=== PATIENT | female | born 1930 | race Caucasian/White ===

== ENCOUNTER 2016-06-15 17:52 | Emergency (ER) | payer MEDICARE, OTHER ==
[2016-06-15] MEDS ORDERED: NS 0.9% 1000 ML* 1,000 ML IV ONE (18:59)
--- NOTE | 2016-06-15 20:06 | RAD ---
Indication: Fever, weakness. Comparison: December 21, [address] and December 21, 2015 chest radiograph. December 21, [address] Technique: Sitting AP and lateral chest views. Report: Elevated lung volumes and both mild prominence and rarefaction of the interstitial markings. No alveolar consolidation, focal pulmonary lesion, pleural effusion, pneumothorax. Upper normal heart size. Unremarkable central pulmonary vasculature. T8 vertebral compression fracture is chronic. Bone density appears decreased throughout. IMPRESSION: Stigmata of chronic obstructive pulmonary disease and emphysema. No acute cardiopulmonary process evident.
[2016-06-15 20:16] LABS: Hematocrit 47 % (35-47); Hemoglobin 14.8 g/dl (12.0-16.0); Mean Corpuscular HGB Conc 32 g/dl (31-36); Mean Corpuscular Hemoglobin 30 pg (27-31); Mean Corpuscular Volume 94 fL (80-97); Mean Platelet Volume 8 um3 (7.4-10.4); Red Blood Count 4.97 10^6/ul (4.0-5.4); Red Cell Distribution Width 15 % (10.5-15); White Blood Count 7.7 10^3/ul (3.5-10.8)
[2016-06-15 20:30] LABS: Albumin 4.1 g/dL (3.2-5.2); BUN/Creatinine Ratio 19.7 (8-20); C Reactive Protein 1.94 mg/L (< 5.00); Calcium 10.2 mg/dL (8.6-10.3); EGFR African American 100.4 (>60); EGFR Non-African American 78.1 (>60); Globulin 2.9 g/dL (2-4); Magnesium 1.8 mg/dL (1.9-2.7); Potassium 4.1 mmol/L (3.5-5.0); Total Bilirubin 0.4 mg/dL (0.2-1.0)
[2016-06-15 20:52] LABS: TSH (Thyroid Stimulating Horm) 1.01 mcIU/mL (0.34-5.60)
--- NOTE | 2016-06-15 21:34 | RAD ---
INDICATION: Weakness, multiple falls. Remote appendectomy. . COMPARISON: December 21, 2015 and September 08, 2013 CT exams. TECHNIQUE: Multidetector CT images were obtained from the lung bases to the ischial tuberosities. Evaluation of the viscera is limited without IV contrast. Multiplanar reformation. REPORT: Visualized lung bases are remarkable for emphysema. Unremarkable unenhanced liver and gallbladder. Moderately atrophic pancreas without suspicious finding. Unremarkable spleen. Large medially projecting diverticulum from the second segment of the duodenum without suggestion of inflammatory change. Unremarkable unopacified small bowel loops. Moderate diverticulosis primarily at the sigmoid colon without findings of diverticulitis. Small volume of free fluid in the pelvis. Negative for free air or significant hernias. Normal adrenal glands. Negative for hydronephrosis. There are bilateral renal cysts with large cyst at the RIGHT kidney with multiple demonstrating marginal calcification without significant change in size or degree of calcification compared with the 2014 CT consistent with benign etiology. The dominant cyst at the LEFT kidney is at the upper pole measuring up to 8.3 cm diameter. No renal collecting system stones or hydronephrosis. Unremarkable nondilated ureters. Unremarkable moderately distended urinary bladder. No significant change in calcified uterine fibroids compared with the 2014 exam. Unremarkable adnexal regions. Negative for lymphadenopathy. Normal diameter abdominal aorta and iliac arteries with significant calcific plaque. Negative for retroperitoneal or superficial soft tissue plane hematoma. Polyarticular degenerative arthropathy. Moderate RIGHT convex curve of the lumbar spine. No fractures or suspicious focal osseous lesions evident. IMPRESSION: 1. No acute abdominal pelvic pathologic process evident. 2. Moderate colonic diverticulosis without findings of diverticulitis. 3. No significant change in large LEFT renal cyst with mural calcification compared with the 2014 exam. 4. Negative for obstructive uropathy. 5. Negative for aortic aneurysm. 6. Negative for loculated hematoma or fracture.
[2016-06-15 21:44] LABS: Urine Bacteria Absent (Absent); Urine Bilirubin Negative (Negative); Urine Glucose Negative (Negative); Urine Nitrite Negative (Negative)
[2016-06-15 23:46] VITALS: BP 150/71
--- NOTE | 2016-06-16 10:55 | ED ---
Jules Salter Adam, scribed for Link Sultana MD on 06/15/16 at 1902 . Complex/Multi-Sys Presentation - HPI Summary HPI Summary: Pt is an 86 year old female presenting with increasing weakness. Her daughter states that the pt has grown very weak in the past few days and is no longer able to walk. She has fallen 2x in the last few days which is rare for her. She also presents with left foot swelling with redness. Last week her prednisone dosage was raised from 10 to 40. Today is her 4th day on 40 mg and she is not doing well. In addition to the weakness and LLE symptoms, her daughter states that she has been having generalized myalgia and she seems to have a low fever. Pt is a former smoker. PMHx includes lupus, HTN, DVT, GERD, osteoporosis, depression, and sciatic pain. - History Of Current Complaint Chief Complaint: EDWeakness Time Seen by Provider: 06/15/16 18:51 Hx Obtained From: Patient Onset/Duration: Gradual Onset, Lasting Days, Still Present Timing: Constant Severity Currently: Moderate Severity Initially: Mild Location: Pain At: - Generalized Associated Signs And Symptoms: Positive: Weakness, Edema - Left foot, with redness, Fever - Allergies/Home Medications Allergies/Adverse Reactions: Allergies Allergy/AdvReac Type Severity Reaction Status Date / Time Penicillins [PCN] Allergy Intermediate Rash Verified 12/21/15 11:22 PMH/Surg Hx/FS Hx/Imm Hx Endocrine/Hematology History: Reports: Hx Systemic Lupus Erythematosus, Other Endocrine/Hematological Disorders - LUPUS Denies: Hx Anticoagulant Therapy, Hx Blood Disorders, Hx Blood Transfusions, Hx Bone Marrow Disease, Hx Diabetes, Hx Sickle Cell Disease, Hx Thyroid Disease , Hx Anemia, Hx Unexplained Bleeding Cardiovascular History: Reports: Hx Deep Vein Thrombosis, Hx Hypertension, Other Cardiovascular Problems/Disorders - LUPUS Denies: Hx Congestive Heart Failure, Hx Pacemaker/ICD Respiratory History: Denies: Hx Asthma, Hx Chronic Obstructive Pulmonary Disease (COPD) GI History: Reports: Hx Gastroesophageal Reflux Disease, Hx Irritable Bowel, Other GI Disorders - GERD Denies: Hx Cirrhosis, Hx Crohn's Disease, Hx Diverticulosis, Hx Gall Bladder Disease, Hx Gastrointestinal Bleed, Hx Hiatal Hernia, Hx Jaundice, Hx Obstructive Bowel, Hx Ileostomy, Hx Pyloric Stenosis, Hx Ulcer History: Reports: Other Problems/Disorders - UTIs several x's a yr Denies: Hx Dialysis, Hx Renal Disease Musculoskeletal History: Reports: Hx Arthritis, Hx Back Problems, Hx Fibromyalgia, Other Musculoskeletal History - DJD-NECK, FIBROMYALGIA, RHEUMATOID ARTHRITIS Denies: Hx Rheumatoid Arthritis, Hx Bursitis, Hx Congenital Bone Abnormalities, Hx Gout, Hx Orthopedic Injury, Hx Osteoporosis, Hx Scoliosis, Hx Tendonitis Sensory History: Reports: Hx Cataracts, Hx Contacts or Glasses, Hx Vision Problem Denies: Hx Eye Injury, Hx Eye Prosthesis, Hx Glaucoma, Hx Macular Degeneration, Hx Deafness, Hx Hearing Aid, Hx Hearing Problem, Other Sensory Impairments Opthamlomology History: Reports: Hx Cataracts, Hx Contacts or Glasses, Hx Vision Problem Denies: Hx Eye Injury, Hx Eye Prosthesis, Hx Glaucoma, Hx Macular Degeneration, Other Sensory Impairments Neurological History: Denies: Hx Dementia, Hx Seizures Psychiatric History: Reports: Hx Anxiety - LUPUS RELATED, Hx Eating Disorder, Hx Depression - LUPUS RELATED Denies: Hx Attention Deficit Hyperactivity Disorder, Hx Panic Disorder, Hx Post Traumatic Stress Disorder, Hx Inpatient Treatment, Hx Schizophrenia, Hx Bipolar Disorder, Hx Suicide Attempt, Hx Substance Abuse, Other Psychiatric Issues/Disorders - Cancer History Hx Chemotherapy: No - Surgical History Surgery Procedure, Year, and Place: . APPENDECTOMY 40 YEARS AGO (?) Hx Anesthesia Reactions: No Infectious Disease History: No Infectious Disease History: Denies: Hx Clostridium Difficile, Hx Hepatitis, Hx Human Immunodeficiency Virus (HIV), Hx of Known/Suspected MRSA, Hx Shingles, Hx Tuberculosis, Traveled Outside the [place] in Last 30 Days - Family History Known Family History: Positive: None - Pt denies any FMHx - Social History Occupation: Retired Lives: Alone Alcohol Use: None Hx Substance Use: No Substance Use Type: Reports: None Hx Tobacco Use: Yes Smoking Status (MU): Former Smoker Type: Cigarettes Amount Used/How Often: 40 years Have You Smoked in the Last Year: No Review of Systems Positive: Fever Negative: Diarrhea Positive: Myalgia - Generalized, Edema - Left foot Positive: Other - Redness, left foot Positive: Weakness All Other Systems Reviewed And Are Negative: Yes Physical Exam - Summary Physical Exam Summary: VITAL SIGNS: Reviewed. GENERAL: Patient is a this female who is lying comfortable in the stretcher. Patient is not in any acute respiratory distress. HEAD AND FACE: No signs of trauma. No ecchymosis, hematomas or skull depressions. No sinus tenderness. EYES: PERRLA, EOMI x 2, No injected conjunctiva, no nystagmus. No photophobia. EARS: Hearing grossly intact. Ear canals and tympanic membranes are within normal limits. MOUTH: Oropharynx within normal limits. NECK: Supple, trachea is midline, no adenopathy, no JVD, no carotid bruit, no c- spine tenderness, neck with full ROM. No meningeal signs, no Kernig's or brudzinskis signs. CHEST: Symmetric, no tenderness at palpation LUNGS: Clear to auscultation bilaterally. No wheezing or crackles. CVS: Regular rate and rhythm, S1 and S2 present, no murmurs or gallops appreciated. ABDOMEN: Soft, non-tender. No signs of distention. No rebound no guarding, and no masses palpated. Bowel sounds are normal. EXTREMITIES: FROM in all major joints, no edema, no cyanosis or clubbing. NEURO: Alert and oriented x 3. No acute neurological deficits. Speech is normal and follows commands. SKIN: Dry and warm Triage Information Reviewed: Yes Vital Signs On Initial Exam: Initial Vitals Temp Pulse Resp BP Pulse Ox 101 F 72 20 129/81 98 06/15/16 18:04 06/15/16 18:04 06/15/16 18:04 06/15/16 18:04 06/15/16 18:04 Vital Signs Reviewed: Yes - Boni Coma Scale Coma Scale Total: 15 Diagnostics - Vital Signs Vital Signs Temp Pulse Resp BP Pulse Ox 06/15/16 18:15 70 97 06/15/16 18:04 101 F 72 20 129/81 98 - Laboratory Lab Results: Lab Results 06/15/16 06/15/16 06/15/16 Range/Units 20:05 20:05 20:05 WBC 7.7 (3.5-10.8) 10^3/ul RBC 4.97 (4.0-5.4) 10^6/ul Hgb 14.8 (12.0-16.0) g/dl Hct 47 (35-47) % MCV 94 (80-97) fL MCH 30 (27-31) pg MCHC 32 (31-36) g/dl RDW 15 (10.5-15) % Plt Count 306 (150-450) 10^3/ul MPV 8 (7.4-10.4) um3 Neut % (Auto) 88.0 H (38-83) % Lymph % (Auto) 10.4 L (25-47) % Nobles % (Auto) 1.3 (1-9) % Eos % (Auto) 0 (0-6) % Baso % (Auto) 0.3 (0-2) % Absolute Neuts (auto) 6.8 (1.5-7.7) 10^3/ul Absolute Lymphs (auto) 0.8 L (1.0-4.8) 10^3/ul Absolute Monos (auto) 0.1 (0-0.8) 10^3/ul Absolute Eos (auto) 0 (0-0.6) 10^3/ul Absolute Basos (auto) 0 (0-0.2) 10^3/ul Absolute Nucleated RBC 0.01 10^3/ul Nucleated RBC % 0.1 APTT 31.1 (26.0-36.3) seconds Sodium 137 (133-145) mmol/L Potassium 4.1 (3.5-5.0) mmol/L Chloride 101 (101-111) mmol/L Carbon Dioxide 27 (22-32) mmol/L Anion Gap 9 (2-11) mmol/L BUN 14 (6-24) mg/dL Creatinine 0.71 (0.51-0.95) mg/dL Est GFR ( Amer) 100.4 (>60) Est GFR (Non-Af Amer) 78.1 (>60) BUN/Creatinine Ratio 19.7 (8-20) Glucose 122 H (70-100) mg/dL Lactic Acid (0.5-2.0) mmol/L Calcium 10.2 (8.6-10.3) mg/dL Magnesium 1.8 L (1.9-2.7) mg/dL Total Bilirubin 0.40 (0.2-1.0) mg/dL AST 13 (13-39) U/L ALT 6 L (7-52) U/L Alkaline Phosphatase 61 (34-104) U/L Troponin I 0.00 (<0.04) ng/mL C-Reactive Protein 1.94 (< 5.00) mg/L B-Natriuretic Peptide ( - 100) pg/mL Total Protein 7.0 (6.4-8.9) g/dL Albumin 4.1 (3.2-5.2) g/dL Globulin 2.9 (2-4) g/dL Albumin/Globulin Ratio 1.4 (1-3) TSH 1.01 (0.34-5.60) mcIU/mL 06/15/16 06/15/16 Range/Units 20:05 20:05 WBC (3.5-10.8) 10^3/ul RBC (4.0-5.4) 10^6/ul Hgb (12.0-16.0) g/dl Hct (35-47) % MCV (80-97) fL MCH (27-31) pg MCHC (31-36) g/dl RDW (10.5-15) % Plt Count (150-450) 10^3/ul MPV (7.4-10.4) um3 Neut % (Auto) (38-83) % Lymph % (Auto) (25-47) % Nobles % (Auto) (1-9) % Eos % (Auto) (0-6) % Baso % (Auto) (0-2) % Absolute Neuts (auto) (1.5-7.7) 10^3/ul Absolute Lymphs (auto) (1.0-4.8) 10^3/ul Absolute Monos (auto) (0-0.8) 10^3/ul Absolute Eos (auto) (0-0.6) 10^3/ul Absolute Basos (auto) (0-0.2) 10^3/ul Absolute Nucleated RBC 10^3/ul Nucleated RBC % APTT (26.0-36.3) seconds Sodium (133-145) mmol/L Potassium (3.5-5.0) mmol/L Chloride (101-111) mmol/L Carbon Dioxide (22-32) mmol/L Anion Gap (2-11) mmol/L BUN (6-24) mg/dL Creatinine (0.51-0.95) mg/dL Est GFR ( Amer) (>60) Est GFR (Non-Af Amer) (>60) BUN/Creatinine Ratio (8-20) Glucose (70-100) mg/dL Lactic Acid 1.1 (0.5-2.0) mmol/L Calcium (8.6-10.3) mg/dL Magnesium (1.9-2.7) mg/dL Total Bilirubin (0.2-1.0) mg/dL AST (13-39) U/L ALT (7-52) U/L Alkaline Phosphatase (34-104) U/L Troponin I (<0.04) ng/mL C-Reactive Protein (< 5.00) mg/L B-Natriuretic Peptide 217 H ( - 100) pg/mL Total Protein (6.4-8.9) g/dL Albumin (3.2-5.2) g/dL Globulin (2-4) g/dL Albumin/Globulin Ratio (1-3) TSH (0.34-5.60) mcIU/mL Result Diagrams: 06/15/16 20:05 06/15/16 20:05 Lab Statement: Any lab studies that have been ordered have been reviewed, and results considered in the medical decision making process. - Radiology CXR Radiology Interpretation Completed By: Radiologist - IMPRESSION: Stigmata of chronic obstructive pulmonary disease and emphysema. No acute cardiopulmonary process evident. - CT A/P CT Interpretation Completed By: Radiologist - IMPRESSION: 1. No acute abdominal pelvic pathologic process evident. 2. Moderate colonic diverticulosis without findings of diverticulitis. 3. No significant change in large LEFT renal cyst with mural calcification compared with the 2014 exam. 4. Negative for obstructive uropathy. 5. Negative for aortic aneurysm. 6. Negative for loculated hematoma or fracture. - Additional Comments Diagnostic Additional Comments: Troponin I - 0.00 Complex Multi-Symp Course/Dx Assessment/Plan: Pt is an 86 year old female presenting with increasing weakness. Her daughter states that the pt has grown very weak in the past few days and is no longer able to walk. She has fallen 2x in the last few days which is rare for her. She also presents with left foot swelling with redness. Last week her prednisone dosage was raised from 10 to 40. Today is her 4th day on 40 mg and she is not doing well. In addition to the weakness and LLE symptoms , her daughter states that she has been having generalized myalgia and she seems to have a low fever. Pt is a former smoker. PMHx includes lupus, HTN, DVT , GERD, osteoporosis, depression, and sciatic pain. Fall precautions were ordered. Blood work shows hyperglycemia of 122, Mg+ 1.8 BNP 217. Initially she was given Magnesium. Abdominal and pelvic CT was done since she report occasional abdominal pain. Impression as above. I did not perform an Head CT since she is neurological intact. She is ambulating in the ED with good steady walk. CXR: Stigmata for COPD, with no acute disease. In the Ed course she was ambulated with good steady walk. Daughter reports that she will staying with her at home and she will be moving with her in the next couple days. She will be discharged home with f/u of PMD in the next 1-2 days. - Diagnoses Differential Diagnoses/HQI/PQRI: Other - Mechanical falls, UTI, weakness Provider Diagnoses: Weakness, Accidental fall Discharge - Discharge Plan Condition: Stable Disposition: HOME Patient Education Materials: Weakness (ED), Fall Prevention for Older Adults ( ED) Referrals: Alex Mack MD [Primary Care Provider] - Additional Instructions: Follow up with Dr. Mack. The documentation as recorded by the Jules hoffman Adam accurately reflects the service I personally performed and the decisions made by me, Link Sultana MD.
== END 2016-06-15 23:46 | disposition home or self-care (01) ==
LOC: ED 17:52
DX: R53.1 Weakness (principal); R60.9 Edema, unspecified; R50.9 Fever, unspecified; Z87.891 Personal history of nicotine dependence
CPT/HCPCS: 36415; 71020; 74176; 80053; 81003; 81015; 83605; 83735; 83880; 84443; 84484; 85025; 85730; 86140; 87040; 99283

== ENCOUNTER → 2016-11-07 15:31 | Emergency (ER) | payer MEDICARE, OTHER ==
[2016-11-07 17:12] VITALS: BP 0/0
== END | disposition left against medical advice (07) ==
LOC: ED 15:31
DX: Z53.21 Procedure and treatment not carried out due to patient leaving prior to being seen by health care provider (principal)
CPT/HCPCS: 99281

== ENCOUNTER 2017-01-11 13:20 | Inpatient (IN) | payer MEDICARE, OTHER ==
[2017-01-11 14:37] LABS: Add Diff/Slide Review? Slide Review Added; Comments Flag Yes; Hematocrit 44 % (35-47); Hemoglobin 14.2 g/dl (12.0-16.0); Mean Corpuscular HGB Conc 32 g/dl (31-36); Mean Corpuscular Hemoglobin 30 pg (27-31); Mean Corpuscular Volume 93 fL (80-97); Mean Platelet Volume 7 um3 (7.4-10.4); Red Blood Count 4.72 10^6/ul (4.0-5.4); Red Cell Distribution Width 15 % (10.5-15); White Blood Count 11.1 10^3/ul (3.5-10.8)
[2017-01-11 14:43] LABS: Urine Bacteria 2+ (Absent); Urine Bilirubin Negative (Negative); Urine Glucose Negative (Negative); Urine Nitrite Negative (Negative)
[2017-01-11 14:50] LABS: Albumin 3.5 g/dL (3.2-5.2); BUN/Creatinine Ratio 22.4 (8-20); C Reactive Protein 7.04 mg/L (< 5.00); Calcium 8.8 mg/dL (8.6-10.3); EGFR African American 92.8 (>60); EGFR Non-African American 72.2 (>60); Globulin 2.4 g/dL (2-4); Potassium 4.4 mmol/L (3.5-5.0); Total Bilirubin 0.4 mg/dL (0.2-1.0); Total Protein 5.9 g/dL (6.4-8.9)
--- NOTE | 2017-01-11 14:58 | RAD ---
HISTORY: Chest pain COMPARISONS: June 15, 2016 VIEWS: 4: Frontal dual-energy and lateral views of the chest. FINDINGS: CARDIOMEDIASTINAL SILHOUETTE: The cardiomediastinal silhouette is normal. MARINA: The marina are normal. PLEURA: The costophrenic angles are sharp. No pleural abnormalities are noted. LUNG PARENCHYMA: There is hyperinflation with flattening of the diaphragm and expansion of the AP diameter of the chest. ABDOMEN: The upper abdomen is clear. There is no subphrenic gas. BONES AND SOFT TISSUES: Degenerative changes are noted along the spine. OTHER: None. IMPRESSION: HYPERINFLATION, CONSISTENT WITH COPD. NO ACTIVE CARDIOPULMONARY DISEASE.
[2017-01-11 15:02] LABS: Immature Granulocytes 1 % (0-9); Myelocytes % 1 % (0-1); Neutrophil % 94 % (38-83); RBC Morphology Normal (Normal)
[2017-01-11 15:09] LABS: TSH (Thyroid Stimulating Horm) 0.93 mcIU/mL (0.34-5.60)
[2017-01-11] MEDS ORDERED: Iohexol 300* (CONTRAST) 10 ML SDV IV ONE (15:16)
--- NOTE | 2017-01-11 16:16 | RAD ---
INDICATION: Left upper quadrant pain COMPARISON: CT June 15, 2016; CT December 21, 2015 TECHNIQUE: Axial source images were obtained from the hemidiaphragms to the symphysis pubis following administration of oral and intravenous contrast. 71 mL Omnipaque 300 was utilized. Coronal and sagittal reconstructed images were acquired. Lung bases: The lung bases are clear. There is mild pleural thickening in the dependent portions of the lung bases. There is a small pericardial effusion at the base of the heart Liver: The liver is normal in size. There are no masses. There is no ductal dilatation. Gallbladder: There are no calcified gallstones. There is no evidence of wall thickening or pericholecystic fluid. There is mild enhancement of the gallbladder wall. Spleen: The spleen is normal in size. There are no new masses. There is a stable low-density splenic lesion which may represent a cyst. This is unchanged from the 2016 study Pancreas: There is no focal pancreatic mass or ductal dilatation. There is mild pancreatic atrophy Adrenal glands: There is no evidence of adrenal mass. Kidneys: There are numerous renal cysts with dominant left renal cysts measuring up to 8 cm. Several cysts contain peripheral, curvilinear calcifications. The appearance is unchanged. Smaller cysts are present on the right. There is mild renal parenchymal thinning bilaterally.. There is prompt perfusion and excretion Adenopathy: There is no evidence of adenopathy by size criteria. Fluid collections: There are no free or localized fluid collections. Vessels:There are atherosclerotic changes involving the aorta and iliac vessels. There is no focal aneurysm. The IVC appears normal. GI tract: The upper GI tract is unremarkable. There is a curvilinear artifact in the cecum which is likely an ingested foreign body. This is likely an incidental finding. There are scattered diverticula of the sigmoid and descending colon. There is no CT evidence of diverticulitis. There are no findings of obstruction or perforation. Pelvic organs: There are numerous calcified uterine leiomyomas, unchanged. There is no adnexal mass Bladder: There are no bladder masses. Abdominal and pelvic soft tissues: The extraperitoneal abdominal and pelvic soft tissues appear normal.. Osseous structures: There are no acute osseous changes. There are spondylitic changes of the lumbar spine. Other: None IMPRESSION: 1. Small pericardial effusion at the base the heart. 2. Mild nonspecific enhancement gallbladder wall. 3. Stable low-density splenic lesion. 4. Numerous large left renal cysts and small right renal cyst with peripheral calcifications. There is stability. 5. Suspect ingested foreign body residing within the cecum. This is likely an incidental finding. 6. Scattered diverticula of the sigmoid and descending colon. 7. Uterine leiomyomas
[2017-01-11] MEDS ORDERED: HYDROmorphone INJ* 1 MG/ML CARPUJECT SYRINGE IV ONE (16:20)
[2017-01-11] MEDS ORDERED: Ondansetron INJ* 2 MG/ML VIAL IV ONE (16:20)
[2017-01-11] MEDS ORDERED: Levofloxacin 750 MG IVPREMIX(* 750 MG/150 ML BAG IVPB ONE (17:18)
[2017-01-11] MEDS ORDERED: NS 0.9% 1000 ML* 1,000 ML IV ONE (17:18)
[2017-01-11] MEDS ORDERED: Prochlorperazine TAB* 10 MG PO PRN (19:30)
[2017-01-11] MEDS ORDERED: HYDROcodone/ACETAMIN 5-325 MG* 1 TAB PO PRN (19:30)
[2017-01-11] MEDS: Carvedilol TAB* 3.125 MG PO SCH (21:38)
[2017-01-11] MEDS: cefTRIAXone VIAL(*) 1,000 MG in NS 0.9% 50 ML* 50 ML IVPB SCH (21:38)
[2017-01-11] MEDS: Gabapentin CAP(*) 300 MG PO SCH (21:39)
[2017-01-11] MEDS: clonazePAM TAB(*) 0.5 MG PO SCH (21:39)
[2017-01-11] MEDS: busPIRone TAB* 5 MG PO SCH (21:39)
[2017-01-11] MEDS: Mycophenolate Mofetil TAB(*) 500 MG PO SCH (21:41)
[2017-01-11] MEDS: NS 0.9% 1000 ML* 1,000 ML IV SCH (21:47)
--- NOTE | 2017-01-11 23:28 | HP ---
CC: Dr. Mack* HISTORY AND PHYSICAL: DATE OF ADMISSION: 01/11/17 PRIMARY CARE PROVIDER: Dr. Mack. CHIEF COMPLAINT: Abdominal pain. HISTORY OF PRESENT ILLNESS: Rafaela Spring is an 86-year-old female with a history of lupus, anxiety, tardive dyskinesia, irritable bowel syndrome, who presents to the hospital complaining of 3 months of abdominal pain. She apparently had a CT of the abdomen to be obtained as an outpatient, but she came into the hospital for evaluation. Three days ago, she developed diarrhea. She stated that she is incontinent of her bowel movements and she is unsure how often she goes, but her daughter stated that her bowel movements are now "pure liquid." She had been having diarrhea for 3 days. The abdominal pain is chronic, intermittent, and localized in the left mid abdomen. The diarrhea got her weaker and they came into the ED for evaluation. Here, her CT of the abdomen is basically unremarkable apart from possibility of bezoar in the cecum. She also has possible UTI. She is going to be admitted for an overnight observation. PAST MEDICAL HISTORY: 1. SLE, on CellCept and prednisone. 2. 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 3. History of anxiety and depression. 4. Chronic pain due to T8 compression fracture and scoliosis. 5. History of small bowel obstruction, status post exploratory laparotomy in 2014 with removal of bezoar by Dr. Carmona as well as abscess of the appendix at the same time. 6. History of osteoarthritis. 7. Gastroesophageal reflux disease. 8. Irritable bowel syndrome. 9. Cataract surgery bilaterally. 10. Hypertension. OUTPATIENT MEDICATIONS: Include: 1. Coumadin 5 mg daily. 2. Baclofen 10 mg t.i.d. p.r.n. 3. Fosamax 70 mg weekly. 4. BuSpar 5 mg b.i.d. 5. Calcium carbonate 1 tablet daily. 6. Gabapentin 300 mg at bedtime. 7. Coreg 3.125 mg b.i.d. 8. Compazine 10 mg daily p.r.n. 9. Paroxetine 30 mg daily. 10. CellCept 500 mg b.i.d. 11. Conway 5/325 one tablet up to 4 times a day p.r.n. 12. Prednisone 10 mg daily. 13. Clonazepam 0.5 mg at bedtime. ALLERGIES: PENICILLIN. FAMILY HISTORY: Positive for diabetes and heart disease. SOCIAL HISTORY: The patient denies any current smoking. She quit smoking 40 years ago. There is a history of [id number] smoking. She denies any alcohol or drug use. She lives at her own trailer. Her daughter, Arcelia, is her healthcare proxy. Her other daughter is an emergency room physician, who lives in [place]. She ambulates with a roller walker. REVIEW OF SYSTEMS: Please see history of present illness. In addition to the above mentioned, all other 14 systems were reviewed and were otherwise negative. PHYSICAL EXAMINATION GENERAL APPEARANCE: The patient is a very pleasant 86-year-old female, who is in no acute distress. Alert, awake, and oriented x3. VITAL SIGNS: Blood pressure of 131/67, heart rate of 109 on room air, respiratory rate 18, oxygen saturation 95% on room air, and temperature of 97.7. HEENT: Head atraumatic, normocephalic. Eyes, pupils are equal, round, and reactive to light and accommodation. Oropharynx clear. Mucosa moist. NECK: Supple. No JVD, no bruits bilaterally. RESPIRATORY: Clear to auscultation bilaterally. CARDIOVASCULAR: Regular rate and rhythm. No murmur. ABDOMEN: Soft, distended, nontender. Bowel sounds are present in all 4 quadrants. EXTREMITIES: There is no edema. Pulses are +2 bilaterally. No clubbing or cyanosis. NEUROLOGIC: Noted frequent smacking of the lips due to tardive dyskinesia. Motor strength otherwise is 5/5 bilaterally. Sensation is intact throughout. Speech is clear. LABORATORY DATA: Showed white blood cell count of 11.1, hemoglobin of 14.2, hematocrit of 44, and platelets of 315. Sodium of 136, potassium 4.4, chloride 103, carbon dioxide 26, BUN 17, creatinine 0.76. Liver function test is unremarkable. C-reactive protein of 7. Urinalysis showed +3 wbc's, +2 bacteria, +3 esterase, and +[address] of abdomen and pelvis obtained at admission. Impression: "Small pericardial effusion at the base of the heart. Mild nonspecific enhancement of gallbladder wall. Stable low density splenic lesion. Numerous large left renal cysts and small right renal cysts with peripheral calcifications, there is stability. Suspect ingested foreign body residing in the cecum. This is likely an incidental finding. Scattered diverticula of the sigmoid and descending colon. Uterine leiomyomas." Portable chest x-ray. Impression: "Hyperinflation consistent with COPD. No active cardiopulmonary disease." ASSESSMENT AND PLAN: 1. In regards to the patient's abdominal pain, I suspect that the patient may have another bezoar that caused for the patient to be likely constipated. She probably now has liquid stool that is flowing around the bezoar. At this point , I will observe the patient on medical floor. I will place her on simethicone for gas pains. Also asked specialty development consultant to see the patient in the morning. 2. In regards to the patient's urinary tract infection, the patient was started on Levaquin. I will place her on ceftriaxone beginning tomorrow. 3. For the patient's lupus, the patient is going to be continued on CellCept and prednisone. 4. In regards to the patient's history of splenic infarcts, the patient's INR is 1.96 and her current Coumadin dose is going to be continued. 5. For the patient's diarrhea, once again, it is probably flowing around the bezoar. At this point I will check it for C. diff though. 6. For DVT prophylaxis, the patient is to be continued on Coumadin with daily INRs. 7. For hypertension, Coreg is going to be continued. 8. For code status, the patient is a full code and her surrogate is her daughter, Arcelia. TIME SPENT: Approximately 60 minutes were spent on admission of this patient, more than half that time was spent [id number] with the patient during the interview and physical exam. [id number]/[facility] #: [id number] TINO
[2017-01-12 05:42] LABS: Hematocrit 40 % (35-47); Hemoglobin 13.2 g/dl (12.0-16.0); Mean Corpuscular HGB Conc 33 g/dl (31-36); Mean Corpuscular Hemoglobin 31 pg (27-31); Mean Corpuscular Volume 94 fL (80-97); Mean Platelet Volume 7 um3 (7.4-10.4); Red Blood Count 4.22 10^6/ul (4.0-5.4); Red Cell Distribution Width 15 % (10.5-15); White Blood Count 9.6 10^3/ul (3.5-10.8)
[2017-01-12 05:43] LABS: Add Diff/Slide Review? Slide Review Added; Comments Flag Yes
[2017-01-12 05:59] LABS: BUN/Creatinine Ratio 16.7 (8-20); Calcium 8.4 mg/dL (8.6-10.3); EGFR African American 98.8 (>60); EGFR Non-African American 76.8 (>60); Potassium 3.6 mmol/L (3.5-5.0)
[2017-01-12] MEDS: predniSONE TAB* 5 MG PO SCH (08:27)
[2017-01-12] MEDS: Mycophenolate Mofetil TAB(*) 500 MG PO SCH ×2 (08:28→20:56)
[2017-01-12] MEDS: Carvedilol TAB* 3.125 MG PO SCH ×2 (08:28→20:56)
[2017-01-12] MEDS: Simethicone TAB* 80 MG TAB.CHEW PO SCH ×3 (08:28→16:38)
[2017-01-12] MEDS: busPIRone TAB* 5 MG PO SCH ×2 (08:28→20:54)
[2017-01-12] MEDS: NS 0.9% 1000 ML* 1,000 ML IV SCH (14:01)
[2017-01-12] MEDS: metroNIDAZOLE TAB* 250 MG PO SCH ×2 (14:04→20:56)
--- NOTE | 2017-01-12 14:31 | PN ---
Subjective Date of Service: 01/12/17 Interval History: pt denies abd pain, continues to have multiple loose BM's: "I go every 15 minutes" Objective Active Medications: Hydrocodone Bitart/Acetaminophen (Windber 5-325 Tab*) 1 tab PO QID PRN PRN Reason: PAIN Last Admin: 01/12/17 12:47 Dose: 1 tab Baclofen (Lioresal Tab*) 10 mg PO TID PRN PRN Reason: SPASMS Buspirone HCl (Buspar Tab*) 5 mg PO BID [facility] Last Admin: 01/12/17 08:28 Dose: 5 mg Carvedilol (Coreg Tab*) 3.125 mg PO BID [facility] Last Admin: 01/12/17 08:28 Dose: 3.125 mg Clonazepam (Klonopin Tab(*)) 0.5 mg PO BEDTIME [facility] Last Admin: 01/11/17 21:39 Dose: 0.5 mg Gabapentin (Neurontin Cap(*)) 300 mg PO BEDTIME [facility] Last Admin: 01/11/17 21:39 Dose: 300 mg Ceftriaxone Sodium 1,000 mg/ (Sodium Chloride) 50 mls @ 200 mls/hr IVPB Q24H [facility] Last Admin: 01/11/17 21:38 Dose: 200 mls/hr Sodium Chloride (Ns 0.9% 1000 Ml*) 1,000 mls @ 75 mls/hr IV PER RATE [facility] Last Admin: 01/12/17 14:01 Dose: 75 mls/hr Metronidazole (Flagyl Tab*) 500 mg PO TID [facility] Last Admin: 01/12/17 14:04 Dose: 500 mg Mycophenolate Mofetil (Cellcept Tab(*)) 500 mg PO BID [facility] Last Admin: 01/12/17 08:28 Dose: 500 mg Paroxetine HCl (Paxil Tab*) 40 mg PO QPM [facility] Prednisone (Deltasone Tab*) 10 mg PO DAILY [facility] Last Admin: 01/12/17 08:27 Dose: 10 mg Prochlorperazine (Compazine Tab*) 10 mg PO DAILY PRN PRN Reason: NAUSEA Simethicone (Mylicon Tab*) 80 mg PO AC [facility] Last Admin: 01/12/17 12:47 Dose: 80 mg Oxygen Devices in Use Now: None Appearance: 86 yo f in nAD, aAOx3 Eyes: No Scleral Icterus, PERRLA Ears/Nose/Mouth/Throat: NL Teeth, Lips, Gums, Mucous Membranes Moist Neck: NL Appearance and Movements; NL JVP, Trachea Midline Respiratory: Symmetrical Chest Expansion and Respiratory Effort, Clear to Auscultation Cardiovascular: NL Sounds; No Murmurs; No JVD, RRR Abdominal: NL Sounds; No Tenderness; No Distention, No Hepatosplenomegaly Lymphatic: No Cervical Adenopathy Extremities: No Edema, No Clubbing, Cyanosis Skin: No Rash or Ulcers, No Nodules or Sclerosis Neurological: Alert and Oriented x 3, NL Muscle Strength and Tone Result Diagrams: 01/12/17 04:52 01/12/17 04:52 Assess/Plan/Problems-Billing Assessment: 86 yo F with 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 - Patient Problems (1) Diarrhea Comment: C. diff neg Pain resolved-was in Left abdomen. Reviewed CT with Dr. Morales who noted the foreign body in the cecum not to be obstructing. It is probably an incidental finding. There were also extensive diverticuli. Suspect the pt has diverticulits that would explain the abd pain (that improved with Ceftriaxone ) and diarrhea. Will add flagyl PO to treat suspected diverticulitis. (2) UTI (urinary tract infection) Comment: Cx positive for klebsiella UTI. cont Cefrtriaxone (3) Hypertension Comment: Continue carvedilol. controlled (4) Infarction of spleen Comment: splenic and renal infarcts and thrombosis in the splenic artery severeral years ago cont coumadin (5) Systemic lupus erythematosus Comment: Continue cellcept and prednisone (6) DVT prophylaxis Comment: Coumadin Status and Disposition: Due to continuation of diarrhea will place pt on inpatient status
[2017-01-12] MEDS: PARoxetine HCL TAB* 40 MG PO SCH (18:02)
[2017-01-12] MEDS: cefTRIAXone VIAL(*) 1,000 MG in NS 0.9% 50 ML* 50 ML IVPB SCH (20:49)
[2017-01-12] MEDS: Baclofen TAB* 10 MG PO PRN (20:55)
[2017-01-12] MEDS: Gabapentin CAP(*) 300 MG PO SCH (20:57)
[2017-01-12] MEDS: clonazePAM TAB(*) 0.5 MG PO SCH (20:57)
[2017-01-13] MEDS: NS 0.9% 1000 ML* 1,000 ML IV SCH (04:58)
[2017-01-13] MEDS: Simethicone TAB* 80 MG TAB.CHEW PO SCH ×3 (09:30→17:14)
[2017-01-13] MEDS: Mycophenolate Mofetil TAB(*) 500 MG PO SCH ×2 (09:30→20:08)
[2017-01-13] MEDS: metroNIDAZOLE TAB* 250 MG PO SCH ×3 (09:30→20:08)
[2017-01-13] MEDS: Carvedilol TAB* 3.125 MG PO SCH ×2 (09:31→20:09)
[2017-01-13] MEDS: busPIRone TAB* 5 MG PO SCH ×2 (09:31→20:09)
[2017-01-13] MEDS: predniSONE TAB* 5 MG PO SCH (09:31)
--- NOTE | 2017-01-13 12:34 | ED ---
Fredi Salter Benjamin, scribed for Collni Corbett MD on 01/11/17 at 1409 . Abdominal Pain/Female - HPI Summary HPI Summary: 86yo female c/o sharp left sided abdominal pain.She has been having this pain for about a month. Pt saw her PCP yesterday for her symptom and was supposed to get a CT scan yesterday at the hospital, but pt states that she couldnt make it to the hospital due to her abdominal pain. Pt also reports diffuse weakness that is worse in her legs. Pt states that breathing and coughing aggravates her abdominal pain. Pt also reports leg pain when walking. Denies SOB. Pt reports bowel incontinence for about a moth. - History of Current Complaint Chief Complaint: EDAbdPain Stated Complaint: ABD PAIN Time Seen by Provider: 01/11/17 13:28 Hx Obtained From: Patient ?: No Onset/Duration: Gradual Onset, Lasting Weeks - 4 weeks, Still Present Timing: Constant Severity Initially: Moderate Severity Currently: Moderate Pain Intensity: 9 Pain Scale Used: 0-10 Numeric Location: Diffuse - diffuse left abdomen Radiates: No Character: Sharp Aggravating Factor(s): Deep Breaths, Other: - coughing Alleviating Factor(s): Nothing Associated Signs and Symptoms: Positive: Other: - bowel incontinence; weakness Allergies/Adverse Reactions: Allergies Allergy/AdvReac Type Severity Reaction Status Date / Time Penicillins [PCN] Allergy Intermediate Rash Verified 12/21/15 11:22 Home Medications: Home Medications Alendronate (NF) [Fosamax (NF)] 70 mg PO WEEKLY 01/11/17 [History Confirmed ] Baclofen TAB* [Lioresal TAB*] 10 mg PO TID PRN 01/11/17 [History Confirmed 01/11] Carvedilol TAB* [Coreg TAB*] 3.125 mg PO BID 01/11/17 [History Confirmed ] Warfarin TAB(*) [Coumadin TAB(*)] 2.5 mg PO DAILY 01/11/17 [History Confirmed ] busPIRone TAB* [Buspar TAB*] 5 mg PO BID 01/11/17 [History Confirmed 01/11/17] PMH/Surg Hx/FS Hx/Imm Hx Endocrine/Hematology History: Reports: Hx Systemic Lupus Erythematosus, Other Endocrine/Hematological Disorders - LUPUS Denies: Hx Anticoagulant Therapy, Hx Blood Disorders, Hx Blood Transfusions, Hx Bone Marrow Disease, Hx Diabetes, Hx Sickle Cell Disease, Hx Thyroid Disease , Hx Anemia, Hx Unexplained Bleeding Cardiovascular History: Reports: Hx Deep Vein Thrombosis, Hx Hypertension, Other Cardiovascular Problems/Disorders - LUPUS Denies: Hx Congestive Heart Failure, Hx Pacemaker/ICD Respiratory History: Denies: Hx Asthma, Hx Chronic Obstructive Pulmonary Disease (COPD) GI History: Reports: Hx Gastroesophageal Reflux Disease, Hx Irritable Bowel, Other GI Disorders - GERD Denies: Hx Cirrhosis, Hx Crohn's Disease, Hx Diverticulosis, Hx Gall Bladder Disease, Hx Gastrointestinal Bleed, Hx Hiatal Hernia, Hx Jaundice, Hx Obstructive Bowel, Hx Ileostomy, Hx Pyloric Stenosis, Hx Ulcer History: Reports: Other Problems/Disorders - UTIs several x's a yr Denies: Hx Dialysis, Hx Renal Disease Musculoskeletal History: Reports: Hx Arthritis, Hx Back Problems, Hx Fibromyalgia, Other Musculoskeletal History - DJD-NECK, FIBROMYALGIA, RHEUMATOID ARTHRITIS Denies: Hx Rheumatoid Arthritis, Hx Bursitis, Hx Congenital Bone Abnormalities, Hx Gout, Hx Orthopedic Injury, Hx Osteoporosis, Hx Scoliosis, Hx Tendonitis Sensory History: Reports: Hx Cataracts, Hx Contacts or Glasses, Hx Vision Problem Denies: Hx Eye Injury, Hx Eye Prosthesis, Hx Glaucoma, Hx Macular Degeneration, Hx Deafness, Hx Hearing Aid, Hx Hearing Problem, Other Sensory Impairments Opthamlomology History: Reports: Hx Cataracts, Hx Contacts or Glasses, Hx Vision Problem Denies: Hx Eye Injury, Hx Eye Prosthesis, Hx Glaucoma, Hx Macular Degeneration, Other Sensory Impairments Neurological History: Denies: Hx Dementia, Hx Seizures Psychiatric History: Reports: Hx Anxiety - LUPUS RELATED, Hx Eating Disorder, Hx Depression - LUPUS RELATED Denies: Hx Attention Deficit Hyperactivity Disorder, Hx Panic Disorder, Hx Post Traumatic Stress Disorder, Hx Inpatient Treatment, Hx Schizophrenia, Hx Bipolar Disorder, Hx Suicide Attempt, Hx Substance Abuse, Other Psychiatric Issues/Disorders - Cancer History Hx Chemotherapy: No - Surgical History Surgery Procedure, Year, and Place: . APPENDECTOMY 40 YEARS AGO (?) Hx Anesthesia Reactions: No Infectious Disease History: No Infectious Disease History: Denies: Hx Clostridium Difficile, Hx Hepatitis, Hx Human Immunodeficiency Virus (HIV), Hx of Known/Suspected MRSA, Hx Shingles, Hx Tuberculosis, Traveled Outside the [place] in Last 30 Days - Family History Known Family History: Negative: Hypertension - Social History Occupation: Retired Alcohol Use: None Hx Substance Use: No Substance Use Type: Reports: None Hx Tobacco Use: Yes Smoking Status (MU): Former Smoker Type: Cigarettes Amount Used/How Often: 40 years Have You Smoked in the Last Year: No Review of Systems Constitutional: Negative Eyes: Negative ENT: Negative Cardiovascular: Negative Respiratory: Negative Positive: Abdominal Pain, Other - bowel incontinence Genitourinary: Negative Positive: no symptoms reported Positive: Arthralgia - leg pain, Myalgia - leg pain Skin: Negative Positive: Weakness - generalized Psychological: Normal All Other Systems Reviewed And Are Negative: Yes Physical Exam Triage Information Reviewed: Yes Vital Signs On Initial Exam: Initial Vitals BP 135/88 01/11/17 13:26 Vital Signs Reviewed: Yes Appearance: Positive: Well-Appearing, No Pain Distress, Well-Nourished Skin: Positive: Warm, Skin Color Reflects Adequate Perfusion, Dry Head/Face: Positive: Normal Head/Face Inspection Eyes: Positive: EOMI, ANDREW ENT: Positive: Hearing grossly normal, Pharynx normal Neck: Positive: Supple, Nontender Respiratory/Lung Sounds: Positive: Clear to Auscultation, Breath Sounds Present Cardiovascular: Positive: RRR, Pulses are Symmetrical in both Upper and Lower Extremities Abdomen Description: Positive: Nontender - no reproducible tenderness, Soft Bowel Sounds: Positive: Present Musculoskeletal: Positive: Strength/ROM Intact Neurological: Positive: Sensory/Motor Intact, Alert, Oriented to Person Place, Time Psychiatric: Positive: Affect/Mood Appropriate - Boni Coma Scale Coma Scale Total: 15 Diagnostics - Vital Signs Vital Signs Temp Pulse Resp BP Pulse Ox 01/11/17 13:46 97.7 F 108 20 132/76 93 01/11/17 13:30 108 19 132/76 96 01/11/17 13:29 110 19 96 01/11/17 13:26 135/88 - Laboratory Lab Results: Lab Results 01/11/17 01/11/17 01/11/17 Range/Units 14:13 14:13 14:13 WBC 11.1 H (3.5-10.8) 10^3/ul RBC 4.72 (4.0-5.4) 10^6/ul Hgb 14.2 (12.0-16.0) g/dl Hct 44 (35-47) % MCV 93 (80-97) fL MCH 30 (27-31) pg MCHC 32 (31-36) g/dl RDW 15 (10.5-15) % Plt Count 315 (150-450) 10^3/ul MPV 7 L (7.4-10.4) um3 Immature Gran % (Auto) 1 (0-9) % Neut % (Auto) 91.1 H (38-83) % Lymph % (Auto) 7.2 L (25-47) % [place] % (Auto) 1.2 (1-9) % Eos % (Auto) 0.1 (0-6) % Baso % (Auto) 0.4 (0-2) % Absolute Neuts (auto) 10.1 H (1.5-7.7) 10^3/ul Absolute Lymphs (auto) 0.8 L (1.0-4.8) 10^3/ul Absolute Monos (auto) 0.1 (0-0.8) 10^3/ul Absolute Eos (auto) 0 (0-0.6) 10^3/ul Absolute Basos (auto) 0 (0-0.2) 10^3/ul Absolute Nucleated RBC 0 10^3/ul Neutrophils % 94 H (38-83) % Lymphocytes % 4 L (25-47) % Monocytes % 1 (0-13) % Myelocytes % 1 (0-1) % Nucleated RBC % 0 Normal RBC Morphology Normal (Normal) INR (Anticoag Therapy) 1.96 H (0.89-1.11) D-Dimer, Quantitative < 200 (Less Than 230) ng/mL Sodium 136 (133-145) mmol/L Potassium 4.4 (3.5-5.0) mmol/L Chloride 103 (101-111) mmol/L Carbon Dioxide 26 (22-32) mmol/L Anion Gap 7 (2-11) mmol/L BUN 17 (6-24) mg/dL Creatinine 0.76 (0.51-0.95) mg/dL Est GFR ( Amer) 92.8 (>60) Est GFR (Non-Af Amer) 72.2 (>60) BUN/Creatinine Ratio 22.4 H (8-20) Glucose 119 H (70-100) mg/dL Calcium 8.8 (8.6-10.3) mg/dL Total Bilirubin 0.40 (0.2-1.0) mg/dL AST 13 (13-39) U/L ALT 10 (7-52) U/L Alkaline Phosphatase 49 (34-104) U/L Troponin I 0.00 (<0.04) ng/mL C-Reactive Protein 7.04 H (< 5.00) mg/L Total Protein 5.9 L (6.4-8.9) g/dL Albumin 3.5 (3.2-5.2) g/dL Globulin 2.4 (2-4) g/dL Albumin/Globulin Ratio 1.5 (1-3) Lipase 26 (11.0-82.0) U/L TSH 0.93 (0.34-5.60) mcIU/mL Urine Color Urine Appearance Urine pH (5-9) Ur Specific [place] (1.010-1.030) Urine Protein (Negative) Urine Ketones (Negative) Urine Blood (Negative) Urine Nitrate (Negative) Urine Bilirubin (Negative) Urine Urobilinogen (Negative) Ur Leukocyte Esterase (Negative) Urine WBC (Auto) (Absent) Urine RBC (Auto) (Absent) Ur Squamous Epith Cells (Absent) Urine Bacteria (Absent) Urine Glucose (Negative) 01/11/17 01/12/17 01/12/17 Range/Units 14:13 04:51 04:52 WBC 9.6 (3.5-10.8) 10^3/ul RBC 4.22 (4.0-5.4) 10^6/ul Hgb 13.2 (12.0-16.0) g/dl Hct 40 (35-47) % MCV 94 (80-97) fL MCH 31 (27-31) pg MCHC 33 (31-36) g/dl RDW 15 (10.5-15) % Plt Count 285 (150-450) 10^3/ul MPV 7 L (7.4-10.4) um3 Immature Gran % (Auto) (0-9) % Neut % (Auto) 67.0 (38-83) % Lymph % (Auto) 23.9 L (25-47) % [place] % (Auto) 8.0 (1-9) % Eos % (Auto) 0.6 (0-6) % Baso % (Auto) 0.5 (0-2) % Absolute Neuts (auto) 6.4 (1.5-7.7) 10^3/ul Absolute Lymphs (auto) 2.3 (1.0-4.8) 10^3/ul Absolute Monos (auto) 0.8 (0-0.8) 10^3/ul Absolute Eos (auto) 0.1 (0-0.6) 10^3/ul Absolute Basos (auto) 0 (0-0.2) 10^3/ul Absolute Nucleated RBC 0.01 10^3/ul Neutrophils % (38-83) % Lymphocytes % (25-47) % Monocytes % (0-13) % Myelocytes % (0-1) % Nucleated RBC % 0.1 Normal RBC Morphology (Normal) INR (Anticoag Therapy) 2.10 H (0.89-1.11) D-Dimer, Quantitative (Less Than 230) ng/mL Sodium (133-145) mmol/L Potassium (3.5-5.0) mmol/L Chloride (101-111) mmol/L Carbon Dioxide (22-32) mmol/L Anion Gap (2-11) mmol/L BUN (6-24) mg/dL Creatinine (0.51-0.95) mg/dL Est GFR ( Amer) (>60) Est GFR (Non-Af Amer) (>60) BUN/Creatinine Ratio (8-20) Glucose (70-100) mg/dL Calcium (8.6-10.3) mg/dL Total Bilirubin (0.2-1.0) mg/dL AST (13-39) U/L ALT (7-52) U/L Alkaline Phosphatase (34-104) U/L Troponin I (<0.04) ng/mL C-Reactive Protein (< 5.00) mg/L Total Protein (6.4-8.9) g/dL Albumin (3.2-5.2) g/dL Globulin (2-4) g/dL Albumin/Globulin Ratio (1-3) Lipase (11.0-82.0) U/L TSH (0.34-5.60) mcIU/mL Urine Color Yellow Urine Appearance Cloudy Urine pH 7.0 (5-9) Ur Specific [place] 1.005 L (1.010-1.030) Urine Protein Negative (Negative) Urine Ketones Negative (Negative) Urine Blood 2+ H (Negative) Urine Nitrate Negative (Negative) Urine Bilirubin Negative (Negative) Urine Urobilinogen Negative (Negative) Ur Leukocyte Esterase 3+ H (Negative) Urine WBC (Auto) 3+(>20/hpf) H (Absent) Urine RBC (Auto) Trace(0-2/hpf) (Absent) Ur Squamous Epith Cells Present H (Absent) Urine Bacteria 2+ H (Absent) Urine Glucose Negative (Negative) 01/12/17 Range/Units 04:52 WBC (3.5-10.8) 10^3/ul RBC (4.0-5.4) 10^6/ul Hgb (12.0-16.0) g/dl Hct (35-47) % MCV (80-97) fL MCH (27-31) pg MCHC (31-36) g/dl RDW (10.5-15) % Plt Count (150-450) 10^3/ul MPV (7.4-10.4) um3 Immature Gran % (Auto) (0-9) % Neut % (Auto) (38-83) % Lymph % (Auto) (25-47) % [place] % (Auto) (1-9) % Eos % (Auto) (0-6) % Baso % (Auto) (0-2) % Absolute Neuts (auto) (1.5-7.7) 10^3/ul Absolute Lymphs (auto) (1.0-4.8) 10^3/ul Absolute Monos (auto) (0-0.8) 10^3/ul Absolute Eos (auto) (0-0.6) 10^3/ul Absolute Basos (auto) (0-0.2) 10^3/ul Absolute Nucleated RBC 10^3/ul Neutrophils % (38-83) % Lymphocytes % (25-47) % Monocytes % (0-13) % Myelocytes % (0-1) % Nucleated RBC % Normal RBC Morphology (Normal) INR (Anticoag Therapy) (0.89-1.11) D-Dimer, Quantitative (Less Than 230) ng/mL Sodium 139 (133-145) mmol/L Potassium 3.6 (3.5-5.0) mmol/L Chloride 107 (101-111) mmol/L Carbon Dioxide 25 (22-32) mmol/L Anion Gap 7 (2-11) mmol/L BUN 12 (6-24) mg/dL Creatinine 0.72 (0.51-0.95) mg/dL Est GFR ( Amer) 98.8 (>60) Est GFR (Non-Af Amer) 76.8 (>60) BUN/Creatinine Ratio 16.7 (8-20) Glucose 87 (70-100) mg/dL Calcium 8.4 L (8.6-10.3) mg/dL Total Bilirubin (0.2-1.0) mg/dL AST (13-39) U/L ALT (7-52) U/L Alkaline Phosphatase (34-104) U/L Troponin I (<0.04) ng/mL C-Reactive Protein (< 5.00) mg/L Total Protein (6.4-8.9) g/dL Albumin (3.2-5.2) g/dL Globulin (2-4) g/dL Albumin/Globulin Ratio (1-3) Lipase (11.0-82.0) U/L TSH (0.34-5.60) mcIU/mL Urine Color Urine Appearance Urine pH (5-9) Ur Specific [place] (1.010-1.030) Urine Protein (Negative) Urine Ketones (Negative) Urine Blood (Negative) Urine Nitrate (Negative) Urine Bilirubin (Negative) Urine Urobilinogen (Negative) Ur Leukocyte Esterase (Negative) Urine WBC (Auto) (Absent) Urine RBC (Auto) (Absent) Ur Squamous Epith Cells (Absent) Urine Bacteria (Absent) Urine Glucose (Negative) Result Diagrams: 01/12/17 04:52 01/12/17 04:52 Lab Statement: Any lab studies that have been ordered have been reviewed, and results considered in the medical decision making process. - Radiology CXR Xray Interpretation: Positive (See Comments) - IMPRESSION: HYPERINFLATION, CONSISTENT WITH COPD. NO ACTIVE CARDIOPULMONARY DISEASE. Radiology Interpretation Completed By: Radiologist - ED physician has reviewed the radiology report and agrees with the findings. - CT CT A/P W CT Interpretation: Positive (See Comments) - IMPRESSION: 1. Small pericardial effusion at the base the heart. 2. Mild nonspecific enhancement gallbladder wall. 3. Stable low-density splenic lesion. 4. Numerous large left renal cysts and small right renal cyst with peripheral calcifications. There is stability. 5. Suspect ingested foreign body residing within the cecum. This is likely an incidental finding. 6. Scattered diverticula of the sigmoid and descending colon. 7. Uterine leiomyomas CT Interpretation Completed By: Radiologist - ED physician has reviewed the radiology report and agrees with the findings. Abdominal Pain Fem Course/Dx - Course Course Of Treatment: Reviewed pts list of medications and allergies. Blood pressure noted. Discussed with Dr. Harper (hospitalist) at 1737 hour. Ms. Spring has had abdominal pain for a month and is now C/O debilitating weakness. She has a UTI and we gave her fluids and antibiotics. Dr. Harper was consulted for admission. - Diagnoses Provider Diagnoses: Weakness, UTI (urinary tract infection) Discharge - Discharge Plan Condition: Stable Disposition: ADMITTED TO [facility] documentation as recorded by the Fredi hoffman Benjamin accurately reflects the service I personally performed and the decisions made by me, Collin Corbett MD.
--- NOTE | 2017-01-13 16:05 | PN ---
Subjective Date of Service: 01/13/17 Interval History: pt feels much better, stools less frequent, still loose, no abd pain Objective Active Medications: Hydrocodone Bitart/Acetaminophen ([place] 5-325 Tab*) 1 tab PO QID PRN PRN Reason: PAIN Last Admin: 01/12/17 12:47 Dose: 1 tab Baclofen (Lioresal Tab*) 10 mg PO TID PRN PRN Reason: SPASMS Last Admin: 01/12/17 20:55 Dose: 10 mg Buspirone HCl (Buspar Tab*) 5 mg PO BID [facility] Last Admin: 01/13/17 09:31 Dose: 5 mg Carvedilol (Coreg Tab*) 3.125 mg PO BID [facility] Last Admin: 01/13/17 09:31 Dose: 3.125 mg Clonazepam (Klonopin Tab(*)) 0.5 mg PO BEDTIME [facility] Last Admin: 01/12/17 20:57 Dose: 0.5 mg Gabapentin (Neurontin Cap(*)) 300 mg PO BEDTIME [facility] Last Admin: 01/12/17 20:57 Dose: 300 mg Ceftriaxone Sodium 1,000 mg/ (Sodium Chloride) 50 mls @ 200 mls/hr IVPB Q24H [facility] Last Admin: 01/12/17 20:49 Dose: 200 mls/hr Metronidazole (Flagyl Tab*) 500 mg PO TID [facility] Last Admin: 01/13/17 15:26 Dose: 500 mg Mycophenolate Mofetil (Cellcept Tab(*)) 500 mg PO BID [facility] Last Admin: 01/13/17 09:30 Dose: 500 mg Paroxetine HCl (Paxil Tab*) 40 mg PO QPM [facility] Last Admin: 01/12/17 18:02 Dose: 40 mg Prednisone (Deltasone Tab*) 10 mg PO DAILY [facility] Last Admin: 01/13/17 09:31 Dose: 10 mg Prochlorperazine (Compazine Tab*) 10 mg PO DAILY PRN PRN Reason: NAUSEA Simethicone (Mylicon Tab*) 80 mg PO AC [facility] Last Admin: 01/13/17 12:21 Dose: 80 mg Vital Signs 01/12/17 01/12/17 01/12/17 20:00 20:57 22:28 Temperature 97.9 F Pulse Rate 72 Respiratory 16 22 16 Rate Blood Pressure 120/59 (mmHg) O2 Sat by Pulse 97 Oximetry 01/12/17 01/13/17 01/13/17 22:57 02:35 07:54 Temperature 97.5 F 97.8 F Pulse Rate 80 71 Respiratory 16 16 18 Rate Blood Pressure 140/65 124/75 (mmHg) O2 Sat by Pulse 98 98 Oximetry 01/13/17 01/13/17 01/13/17 07:56 08:00 11:11 Temperature 97.8 F 98.6 F Pulse Rate 71 80 Respiratory 18 18 Rate Blood Pressure 124/75 119/62 (mmHg) O2 Sat by Pulse 98 100 Oximetry 01/13/17 01/13/17 11:15 15:26 Temperature 98.6 F 98.6 F Pulse Rate 80 89 Respiratory 15 20 Rate Blood Pressure 119/62 135/71 (mmHg) O2 Sat by Pulse 100 95 Oximetry Oxygen Devices in Use Now: None Appearance: 86 yo f in nAD, AAOx3, frequent lip smacking due to tardive dyskinesis Eyes: No Scleral Icterus, PERRLA Ears/Nose/Mouth/Throat: NL Teeth, Lips, Gums Neck: NL Appearance and Movements; NL JVP, Trachea Midline Respiratory: Symmetrical Chest Expansion and Respiratory Effort, Clear to Auscultation Cardiovascular: NL Sounds; No Murmurs; No JVD, RRR Abdominal: NL Sounds; No Tenderness; No Distention, No Hepatosplenomegaly Lymphatic: No Cervical Adenopathy Extremities: No Edema, No Clubbing, Cyanosis Skin: No Rash or Ulcers, No Nodules or Sclerosis Neurological: Alert and Oriented x 3, NL Muscle Strength and Tone Result Diagrams: 01/12/17 04:52 01/12/17 04:52 Additional Lab and Data: Lab Results 01/11/17 01/11/17 01/11/17 Range/Units 14:13 14:13 14:13 WBC 11.1 H (3.5-10.8) 10^3/ul RBC 4.72 (4.0-5.4) 10^6/ul Hgb 14.2 (12.0-16.0) g/dl Hct 44 (35-47) % MCV 93 (80-97) fL MCH 30 (27-31) pg MCHC 32 (31-36) g/dl RDW 15 (10.5-15) % Plt Count 315 (150-450) 10^3/ul MPV 7 L (7.4-10.4) um3 Immature Gran % (Auto) 1 (0-9) % Neut % (Auto) 91.1 H (38-83) % Lymph % (Auto) 7.2 L (25-47) % Marshall % (Auto) 1.2 (1-9) % Eos % (Auto) 0.1 (0-6) % Baso % (Auto) 0.4 (0-2) % Absolute Neuts (auto) 10.1 H (1.5-7.7) 10^3/ul Absolute Lymphs (auto) 0.8 L (1.0-4.8) 10^3/ul Absolute Monos (auto) 0.1 (0-0.8) 10^3/ul Absolute Eos (auto) 0 (0-0.6) 10^3/ul Absolute Basos (auto) 0 (0-0.2) 10^3/ul Absolute Nucleated RBC 0 10^3/ul Neutrophils % 94 H (38-83) % Lymphocytes % 4 L (25-47) % Monocytes % 1 (0-13) % Myelocytes % 1 (0-1) % Nucleated RBC % 0 Normal RBC Morphology Normal (Normal) INR (Anticoag Therapy) 1.96 H (0.89-1.11) D-Dimer, Quantitative < 200 (Less Than 230) ng/mL Sodium 136 (133-145) mmol/L Potassium 4.4 (3.5-5.0) mmol/L Chloride 103 (101-111) mmol/L Carbon Dioxide 26 (22-32) mmol/L Anion Gap 7 (2-11) mmol/L BUN 17 (6-24) mg/dL Creatinine 0.76 (0.51-0.95) mg/dL Est GFR ( Amer) 92.8 (>60) Est GFR (Non-Af Amer) 72.2 (>60) BUN/Creatinine Ratio 22.4 H (8-20) Glucose 119 H (70-100) mg/dL Calcium 8.8 (8.6-10.3) mg/dL Total Bilirubin 0.40 (0.2-1.0) mg/dL AST 13 (13-39) U/L ALT 10 (7-52) U/L Alkaline Phosphatase 49 (34-104) U/L Troponin I 0.00 (<0.04) ng/mL C-Reactive Protein 7.04 H (< 5.00) mg/L Total Protein 5.9 L (6.4-8.9) g/dL Albumin 3.5 (3.2-5.2) g/dL Globulin 2.4 (2-4) g/dL Albumin/Globulin Ratio 1.5 (1-3) Lipase 26 (11.0-82.0) U/L TSH 0.93 (0.34-5.60) mcIU/mL Urine Color Urine Appearance Urine pH (5-9) Ur Specific [place] (1.010-1.030) Urine Protein (Negative) Urine Ketones (Negative) Urine Blood (Negative) Urine Nitrate (Negative) Urine Bilirubin (Negative) Urine Urobilinogen (Negative) Ur Leukocyte Esterase (Negative) Urine WBC (Auto) (Absent) Urine RBC (Auto) (Absent) Ur Squamous Epith Cells (Absent) Urine Bacteria (Absent) Urine Glucose (Negative) 01/11/17 01/12/17 01/12/17 Range/Units 14:13 04:51 04:52 WBC 9.6 (3.5-10.8) 10^3/ul RBC 4.22 (4.0-5.4) 10^6/ul Hgb 13.2 (12.0-16.0) g/dl Hct 40 (35-47) % MCV 94 (80-97) fL MCH 31 (27-31) pg MCHC 33 (31-36) g/dl RDW 15 (10.5-15) % Plt Count 285 (150-450) 10^3/ul MPV 7 L (7.4-10.4) um3 Immature Gran % (Auto) (0-9) % Neut % (Auto) 67.0 (38-83) % Lymph % (Auto) 23.9 L (25-47) % Marshall % (Auto) 8.0 (1-9) % Eos % (Auto) 0.6 (0-6) % Baso % (Auto) 0.5 (0-2) % Absolute Neuts (auto) 6.4 (1.5-7.7) 10^3/ul Absolute Lymphs (auto) 2.3 (1.0-4.8) 10^3/ul Absolute Monos (auto) 0.8 (0-0.8) 10^3/ul Absolute Eos (auto) 0.1 (0-0.6) 10^3/ul Absolute Basos (auto) 0 (0-0.2) 10^3/ul Absolute Nucleated RBC 0.01 10^3/ul Neutrophils % (38-83) % Lymphocytes % (25-47) % Monocytes % (0-13) % Myelocytes % (0-1) % Nucleated RBC % 0.1 Normal RBC Morphology (Normal) INR (Anticoag Therapy) 2.10 H (0.89-1.11) D-Dimer, Quantitative (Less Than 230) ng/mL Sodium (133-145) mmol/L Potassium (3.5-5.0) mmol/L Chloride (101-111) mmol/L Carbon Dioxide (22-32) mmol/L Anion Gap (2-11) mmol/L BUN (6-24) mg/dL Creatinine (0.51-0.95) mg/dL Est GFR ( Amer) (>60) Est GFR (Non-Af Amer) (>60) BUN/Creatinine Ratio (8-20) Glucose (70-100) mg/dL Calcium (8.6-10.3) mg/dL Total Bilirubin (0.2-1.0) mg/dL AST (13-39) U/L ALT (7-52) U/L Alkaline Phosphatase (34-104) U/L Troponin I (<0.04) ng/mL C-Reactive Protein (< 5.00) mg/L Total Protein (6.4-8.9) g/dL Albumin (3.2-5.2) g/dL Globulin (2-4) g/dL Albumin/Globulin Ratio (1-3) Lipase (11.0-82.0) U/L TSH (0.34-5.60) mcIU/mL Urine Color Yellow Urine Appearance Cloudy Urine pH 7.0 (5-9) Ur Specific [place] 1.005 L (1.010-1.030) Urine Protein Negative (Negative) Urine Ketones Negative (Negative) Urine Blood 2+ H (Negative) Urine Nitrate Negative (Negative) Urine Bilirubin Negative (Negative) Urine Urobilinogen Negative (Negative) Ur Leukocyte Esterase 3+ H (Negative) Urine WBC (Auto) 3+(>20/hpf) H (Absent) Urine RBC (Auto) Trace(0-2/hpf) (Absent) Ur Squamous Epith Cells Present H (Absent) Urine Bacteria 2+ H (Absent) Urine Glucose Negative (Negative) 01/12/17 Range/Units 04:52 WBC (3.5-10.8) 10^3/ul RBC (4.0-5.4) 10^6/ul Hgb (12.0-16.0) g/dl Hct (35-47) % MCV (80-97) fL MCH (27-31) pg MCHC (31-36) g/dl RDW (10.5-15) % Plt Count (150-450) 10^3/ul MPV (7.4-10.4) um3 Immature Gran % (Auto) (0-9) % Neut % (Auto) (38-83) % Lymph % (Auto) (25-47) % Marshall % (Auto) (1-9) % Eos % (Auto) (0-6) % Baso % (Auto) (0-2) % Absolute Neuts (auto) (1.5-7.7) 10^3/ul Absolute Lymphs (auto) (1.0-4.8) 10^3/ul Absolute Monos (auto) (0-0.8) 10^3/ul Absolute Eos (auto) (0-0.6) 10^3/ul Absolute Basos (auto) (0-0.2) 10^3/ul Absolute Nucleated RBC 10^3/ul Neutrophils % (38-83) % Lymphocytes % (25-47) % Monocytes % (0-13) % Myelocytes % (0-1) % Nucleated RBC % Normal RBC Morphology (Normal) INR (Anticoag Therapy) (0.89-1.11) D-Dimer, Quantitative (Less Than 230) ng/mL Sodium 139 (133-145) mmol/L Potassium 3.6 (3.5-5.0) mmol/L Chloride 107 (101-111) mmol/L Carbon Dioxide 25 (22-32) mmol/L Anion Gap 7 (2-11) mmol/L BUN 12 (6-24) mg/dL Creatinine 0.72 (0.51-0.95) mg/dL Est GFR ( Amer) 98.8 (>60) Est GFR (Non-Af Amer) 76.8 (>60) BUN/Creatinine Ratio 16.7 (8-20) Glucose 87 (70-100) mg/dL Calcium 8.4 L (8.6-10.3) mg/dL Total Bilirubin (0.2-1.0) mg/dL AST (13-39) U/L ALT (7-52) U/L Alkaline Phosphatase (34-104) U/L Troponin I (<0.04) ng/mL C-Reactive Protein (< 5.00) mg/L Total Protein (6.4-8.9) g/dL Albumin (3.2-5.2) g/dL Globulin (2-4) g/dL Albumin/Globulin Ratio (1-3) Lipase (11.0-82.0) U/L TSH (0.34-5.60) mcIU/mL Urine Color Urine Appearance Urine pH (5-9) Ur Specific [place] (1.010-1.030) Urine Protein (Negative) Urine Ketones (Negative) Urine Blood (Negative) Urine Nitrate (Negative) Urine Bilirubin (Negative) Urine Urobilinogen (Negative) Ur Leukocyte Esterase (Negative) Urine WBC (Auto) (Absent) Urine RBC (Auto) (Absent) Ur Squamous Epith Cells (Absent) Urine Bacteria (Absent) Urine Glucose (Negative) Assess/Plan/Problems-Billing Assessment: 86 yo F with 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 - Patient Problems (1) Diarrhea Comment: C. diff neg Pain resolved-was in Left abdomen. Reviewed CT with Dr. Morales who noted the foreign body in the cecum not to be obstructing. It is probably an incidental finding. There were also extensive diverticuli. pt is treated with Ceftriaxone and Flagyl for suspected acute diverticulitis- symptoms improving, plan to d/c in AM (2) UTI (urinary tract infection) Comment: Cx positive for klebsiella UTI. cont Ceftriaxone (3) Hypertension Comment: Continue carvedilol. 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
[2017-01-13] MEDS: PARoxetine HCL TAB* 40 MG PO SCH (17:14)
[2017-01-13] MEDS: cefTRIAXone VIAL(*) 1,000 MG in NS 0.9% 50 ML* 50 ML IVPB SCH (20:04)
[2017-01-13] MEDS: clonazePAM TAB(*) 0.5 MG PO SCH (20:08)
[2017-01-13] MEDS: Baclofen TAB* 10 MG PO PRN (20:08)
[2017-01-13] MEDS: Gabapentin CAP(*) 300 MG PO SCH (20:08)
[2017-01-14] MEDS ORDERED: Loperamide CAP* 2 MG PO ONE (09:01)
[2017-01-14] MEDS: Simethicone TAB* 80 MG TAB.CHEW PO SCH ×2 (09:35→11:56)
[2017-01-14] MEDS: Mycophenolate Mofetil TAB(*) 500 MG PO SCH (09:35)
[2017-01-14] MEDS: busPIRone TAB* 5 MG PO SCH (09:35)
[2017-01-14] MEDS: predniSONE TAB* 5 MG PO SCH (09:35)
[2017-01-14] MEDS: Carvedilol TAB* 3.125 MG PO SCH (09:35)
[2017-01-14] MEDS: metroNIDAZOLE TAB* 250 MG PO SCH ×2 (09:35→15:19)
[2017-01-14 13:05] VITALS: BP 130/61
--- NOTE | 2017-01-14 16:56 | DS ---
CC: Dr. Mack * DISCHARGE SUMMARY: DATE OF ADMISSION: 01/11/17 DATE OF DISCHARGE: 01/14/17 PRIMARY CARE PROVIDER: Dr. Mack. DISCHARGE DIAGNOSES: 1. Abdominal pain and diarrhea, possible mild acute diverticulitis. 2. Klebsiella pneumoniae urinary tract infection. SECONDARY DIAGNOSES: 1. History of systemic lupus erythematosus, on CellCept and prednisone. 2. 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 3. History of anxiety and depression. 4. History of chronic pain due to T8 compression fracture and scoliosis. 5. History of small bowel obstruction, status post exploratory laparotomy with removal of bezoar and abscess of the appendix at the same time in 2015. 6. Osteoarthritis. 7. Gastroesophageal reflux disease. 8. Irritable bowel syndrome. 9. Cataract surgery bilaterally. 10. Hypertension. MEDICATIONS AT DISCHARGE: Include: 1. Flagyl 500 mg 3 times a day for a total of 7 days. 2. Cefdinir 300 mg p.o. b.i.d. for a total of 7 days. The remaining medications are unchanged and include: 1. Fosamax 70 mg weekly. 2. Baclofen 10 mg t.i.d. p.r.n. 3. Calcium carbonate 1 tablet daily. 4. Coreg 3.125 mg b.i.d. 5. Gabapentin 300 mg at bedtime. 6. Hydrocodone with acetaminophen 5/325 mg on a p.r.n. basis. 7. CellCept 500 mg b.i.d. 8. Paxil 40 mg daily. 9. Compazine on a p.r.n. basis. 10. Coumadin 2.5 mg daily. 11. BuSpar 5 mg b.i.d. 12. Clonazepam 0.5 mg at bedtime. 13. Prednisone 10 mg daily. The patient was also prescribed Imodium 2 mg p.o. daily p.r.n. diarrhea. LABORATORY DATA/STUDIES PERFORMED IN THE HOSPITAL STAY: Include: On 01/12/17, white blood cell count of 9.6, hemoglobin of 13.2, hematocrit of 40, and platelets of 285,000. Sodium was 139, potassium 3.6, chloride 107, carbon dioxide 25, BUN 12, creatinine 0.72. CT of the abdomen and pelvis obtained on 01/11/17, impression: "Small pericardial effusion at the base of the heart. Mild nonspecific enhancement of gallbladder wall. Stable low density splenic lesion. Numerous large left renal cysts and small right renal cyst with peripheral calcifications. There was stability. Suspected ingested foreign body residing within the cecum. This is likely an incidental finding. Scattered diverticula in the sigmoid and descending colon. Uterine leiomyoma." Microbiology tests were positive for Klebsiella pneumoniae UTI sensitive to most of the antibiotics tested apart from ampicillin. HOSPITALIZATION COURSE: Rafaela Spring is a very nice 86-year-old female who appears to have residual tardive dyskinesia and chronic lip smacking behavior who presented to the [facility] complaining of 3-month duration of abdominal pain as well as diarrhea that occurred for 3 days prior to admission. The patient was initially placed on observation, but then the diarrhea had continued to be a problem and she was admitted to the hospital. Her urinalysis was questionable and eventually, the patient's urine cultures grew Klebsiella pneumoniae over 100,000 colonies. The patient was treated with ceftriaxone for that. On the second day of her hospital stay, Flagyl was added on for possibility of diverticulitis. That was due to continuation of abdominal discomfort as well as diarrhea. The patient was noted to have foreign body in the cecum and that was reviewed with the general surgeon on-call. It was noted that the patient has multiple diverticula, and possibility of diverticulitis was plausible. On ceftriaxone and Flagyl, the patient improved dramatically, although she still had occasional loose stool during the daytime. She used Imodium with good results prior to her discharge. At discharge, the patient is recommended to follow up with her primary care provider in 4 to 7 days. PHYSICAL EXAMINATION: At the time of discharge, blood pressure of 130/61, heart rate of 80 and regular, respiratory rate 16, oxygen saturation 96% on room air, and temperature 98.6. General: The patient is a very pleasant 86- year-old female who is not in acute distress. Alert, awake, and oriented x3. HEENT: Head: Atraumatic, normocephalic. Eyes: Pupils are equal, reactive to light and accommodation. Oropharynx is clear. Mucosa moist. Neck: Supple. No JVD. No bruits bilaterally. Cardiovascular: Regular rate and rhythm. No murmur. Respiratory: Clear to auscultation bilaterally. Abdomen: Soft, nontender. Bowel sounds are present in all 4 quadrants. Extremities: There is no edema. Pulses are +2 bilaterally. No clubbing or cyanosis. On neuro evaluation, the patient has frequent lip smacking behavior, likely due to tardive dyskinesia. Otherwise, motor strength is 5/5 bilaterally. Speech is clear. Sensation is grossly intact. Please note that this is a short summary of the patient's hospitalization. Please refer to further medical records for details. TIME SPENT: Approximately 35 minutes were spent on the patient's discharge. [id number]/[facility] #: [id number] [facility]ITAL[facility]
== END 2017-01-14 15:30 | disposition home health service (06) | DRG 690 ==
LOC: ED 13:20 → MED 17:54 → OBSVTOIN 01-12 13:20
PROVIDERS: ADMIT Internal Medicine; ATTEND Internal Medicine
DX: N39.0 Urinary tract infection, site not specified (principal); M32.9 Systemic lupus erythematosus, unspecified; K57.92 Diverticulitis of intestine, part unspecified, without perforation or abscess without bleeding; F50.9 Eating disorder, unspecified; N28.1 Cyst of kidney, acquired; B96.1 Klebsiella pneumoniae [K. pneumoniae] as the cause of diseases classified elsewhere; D73.5 Infarction of spleen; F41.9 Anxiety disorder, unspecified; F32.9 Major depressive disorder, single episode, unspecified; G89.29 Other chronic pain; Z88.0 Allergy status to penicillin; Z86.718 Personal history of other venous thrombosis and embolism; I10 Essential (primary) hypertension; K21.9 Gastro-esophageal reflux disease without esophagitis; K58.9 Irritable bowel syndrome, unspecified; M19.90 Unspecified osteoarthritis, unspecified site; M79.7 Fibromyalgia; M06.9 Rheumatoid arthritis, unspecified; Z87.891 Personal history of nicotine dependence; Z98.42 Cataract extraction status, left eye; Z98.41 Cataract extraction status, right eye; Z79.01 Long term (current) use of anticoagulants; Z79.52 Long term (current) use of systemic steroids; K57.30 Diverticulosis of large intestine without perforation or abscess without bleeding
CPT/HCPCS: 36415; 71020; 74177; 80048; 80053; 81003; 81015; 83690; 84443; 84484; 85025; 85379; 85610; 86140; 87077; 87086; 87186; 87493; A9270-GY; G8978-GP-CI; G8979-GP-CH; J0696; J1170; J2405; J7512; Q9967

== ENCOUNTER 2017-01-30 17:14 | Emergency (ER) | payer MEDICARE, OTHER ==
[2017-01-30] MEDS ORDERED: HYDROcodone/ACETAMIN 5-325 MG* 1 TAB PO ONE (17:37)
--- NOTE | 2017-01-30 17:49 | ED ---
Progress - Progress Note Progress Note: Pt greeted in hallway with EMS personnel, and in room with daughter and TONIA Neely. Pt lives alone, pushed her lifelink button to [facility] after a reported mechanical fall. Pt has lupus and is s/p splenic infarct, is on Cellcept, so immunosuppressed, and has temp 100.3 temporal and HR 113 on adm, so meets SIRS criteria so sepsis order set initiated and fluids ordered, but not antibiotics.. Also pt is on warfarin for hx recurrent DVT's, and pt reports she did hit her head yesterday, so CT brain and CT C-spine ordered. Pt was just DC'd on 01/14/17 after adm for diverticulitis and Klebsiella UTI. Daughter reports that she has finished the cefdinir and flagyl that she took for that. Exam briefly in room shows pt alert, appropriate, resps unlabored, and lungs clear, S1S2 sinus tach on monitor 106, abd soft, nontender. Pt complains of bilat hip pain on palpation and with movement, can extend both legs above the stretcher and flex both knees and there is no foreshortening. Right knee feels warm to touch and is painful, not red, possible lupus flare. Sepsis order set and fluids initiated without abx ordered. CT brain and CT -spine for pt with fall on warfarin. xray bilat hips (with pelvis) for pain after mechanical fall. hydrocodone 5/325mg given for pain. Daughter states gabapentin doesn't help much for this much pain. Course/Dx - Diagnoses Provider Diagnoses: Fall, SIRS (systemic inflammatory response syndrome)
[2017-01-30] MEDS: NS 0.9% 1000 ML*IV.FLUID IV ONE ×2 (17:58→19:36)
[2017-01-30 18:18] LABS: Hematocrit 40 % (35-47); Hemoglobin 13.2 g/dl (12.0-16.0); Mean Corpuscular HGB Conc 33 g/dl (31-36); Mean Corpuscular Hemoglobin 31 pg (27-31); Mean Corpuscular Volume 93 fL (80-97); Mean Platelet Volume 8 um3 (7.4-10.4); Red Blood Count 4.29 10^6/ul (4.0-5.4); Red Cell Distribution Width 15 % (10.5-15); White Blood Count 10.7 10^3/ul (3.5-10.8)
--- NOTE | 2017-01-30 18:18 | RAD ---
Indication: Fall, patient on anticoagulants with head injury. CT of the brain was performed without IV contrast. Comparison is made with previous exam dated February 12, 2014. Ventricular structures are midline. No midline shift is noted. Central and cortical atrophy is noted. Periventricular lucency consistent with chronic ischemic White matter change is noted. There is no evidence of intracranial mass or hemorrhage. IMPRESSION: Chronic ischemic White matter change. No intracranial mass or hemorrhage is noted. No changes noted since February 12, 2014.
[2017-01-30 18:34] LABS: ALT 8 U/L (7-52); Albumin 3.2 g/dL (3.2-5.2); Alkaline Phosphatase 42 U/L (34-104); BUN/Creatinine Ratio 17.1 (8-20); Blood Urea Nitrogen 13 mg/dL (6-24); CO2 Carbon Dioxide 26 mmol/L (22-32); Chloride 105 mmol/L (101-111); Creatine Kinase 54 U/L (10-223); EGFR African American 92.8 (>60); EGFR Non-African American 72.2 (>60); Globulin 2.4 g/dL (2-4); Glucose 86 mg/dL (70-100); Sodium 136 mmol/L (133-145); Total Protein 5.6 g/dL (6.4-8.9)
[2017-01-30 18:36] LABS: Anion Gap 5 mmol/L (2-11)
--- NOTE | 2017-01-30 18:36 | RAD ---
Indication: Fall, neck injury. CT of the cervical spine was obtained in the axial plane. Sagittal and coronal reconstructed images were obtained. Skull base demonstrates no fracture. Mastoid air cells are well aerated. The C1 ring is intact. The C2 vertebra demonstrates no fracture. Plate process is unremarkable. The vertebral bodies otherwise appear normal in height and alignment with no compression fracture. Incidental lucent area is noted in the vertebral body superior endplate of C4. Degenerative disc disease at C5-C6, C6-C7 and C7-T1 is noted. IMPRESSION: No fracture of the cervical spine is noted. Lucent area superior aspect of C4.
[2017-01-30 19:15] LABS: Erythrocyte Sed Rate 47 mm/Hr (0-40)
--- NOTE | 2017-01-30 19:15 | RAD ---
Indication: Bilateral hip pain. 2 views of the right hip and 2 views of left hip are reviewed. AP view the pelvis was also reviewed. There is no fracture or dislocation. No other bone or joint abnormality is identified. IMPRESSION: No fracture of either hip is noted.
--- NOTE | 2017-01-30 19:19 | RAD ---
Indication: Knee redness and swelling. Lupus. Single frontal view of the chest and shape no mediastinal shift. Heart is normal size and configuration. Lung s[place] appear clear. No changes noted since previous exam of January 11, 2017. IMPRESSION: No active cardiopulmonary disease is noted.
[2017-01-30 19:45] LABS: Urine Bacteria Absent (Absent); Urine Bilirubin Negative (Negative); Urine Glucose Negative (Negative); Urine Nitrite Negative (Negative)
--- NOTE | 2017-01-30 19:54 | RAD ---
Indication: Right knee pain. 4 views of the right knee demonstrates no evidence of joint effusion. No fracture is identified. IMPRESSION: No fracture of the right knee is noted.
--- NOTE | 2017-01-30 22:11 | ED ---
Katherin Salter Nilda, scribed for Tyree Francois MD on 01/30/17 at 1945 . Progress - Progress Note Progress Note: This patient was signed out by Dr. Vasquez, pending Ortho consult, CXR, Hip Xray , and Knee Xray. CXR reveals, per radiologist, no active pulmonary disease noted. Hip XRAY reveals, per radiologist, no fracture of either hip is noted. Knee XRAY reveals, per radiologist, no fracture of the right knee is noted. ED Physician has reviewed these reports and agrees. [1943] Dr. Vasquez consulted with Dr. Curry (Ortho) who will come to ED to see patient. [3] Dr. Francois consulted with Dr. Curry (Ortho) and discussed patient. [[id number]] Re-eval: discussed plan to discharge patient. Patient agreeable with this plan. Course/Dx - Course Course Of Treatment: SEEN BY ORTHO; NO SIGN OF SEPTIC JOINT AT THIS TIME. KNEE ERYTHEMA/SWELLING IMPROVED AT DISCHARGE. INR 8. THIS WAS DISCUSSED WITH THE PATIENT AND HER DAUGHTER. PATIENT WILL NOT TAKE HER COUMADIN TONIGHT. SHE WILL DISCUSS THIS WITH HER DOCTOR TOMORROW, 01/31/17. SHE WILL RETURN WITH ANY SIGNS OF BLEEDING. NOTHING GIVEN IN ED TO REVERSE THE INR THERE IS NO SIGN OF BLEEDING NOW. - Diagnoses Provider Diagnoses: Knee pain, right, Elevated INR The documentation as recorded by the Katherin hoffman Nilda accurately reflects the service I personally performed and the decisions made by , Tyree Francois MD.
[2017-01-30 22:17] VITALS: BP 147/71
--- NOTE | 2017-01-31 14:08 | ED ---
Lissett Salter Alfonso scribed for Chang Vasquez MD on 01/30/17 at 1804 . Adult Trauma - HPI Summary HPI Summary: This patient is an 86 year old F BIBA to [facility] accompanied by daughter s/p a mechanical fall earlier today. She also fell yesterday. Today she used her life alert button after my legs just gave out. The patient rates the pain 4/10 in severity. Symptoms aggravated by nothing. Symptoms alleviated by nothing. Patient reports diffuse myalgia, bilateral hip pain, right knee pain, right thigh pain, and diarrhea. Patient denies urinary symptoms, headache, and dizziness. - History of Current Complaint Chief Complaint: EDGeneral Stated Complaint: FALL Time Seen by Provider: 01/30/17 17:31 Hx Obtained From: Patient Mechanism of Injury: Fall Ambulatory at the Scene: No - Life alert Onset of Pain: Prior to Arrival Current Severity: Moderate Pain Intensity: 4 Pain Scale Used: 0-10 Numeric Aggravating Factor(s): Nothing Alleviating Factor(s): Nothing Associated Signs & Symptoms: Positive: Other: - diffuse myalgia, bilateral hip pain, right knee pain, right thigh pain, and diarrhea. Patient denies urinary symptoms, headache, and dizziness. - Additional Pertinent History Primary Care Physician: [id number] - Allergy/Home Medications Allergies/Adverse Reactions: Allergies Allergy/AdvReac Type Severity Reaction Status Date / Time Penicillins [PCN] Allergy Intermediate Rash Verified 12/21/15 11:22 PMH/Surg Hx/FS Hx/Imm Hx Endocrine/Hematology History: Reports: Hx Systemic Lupus Erythematosus, Other Endocrine/Hematological Disorders - LUPUS Denies: Hx Anticoagulant Therapy, Hx Blood Disorders, Hx Blood Transfusions, Hx Bone Marrow Disease, Hx Diabetes, Hx Sickle Cell Disease, Hx Thyroid Disease , Hx Anemia, Hx Unexplained Bleeding Cardiovascular History: Reports: Hx Deep Vein Thrombosis, Hx Embolism - Splenic artery thrombosis, Hx Hypertension Denies: Hx Congestive Heart Failure, Hx Pacemaker/ICD, Other Cardiovascular Problems/Disorders Respiratory History: Denies: Hx Asthma, Hx Chronic Obstructive Pulmonary Disease (COPD) GI History: Reports: Hx Gastroesophageal Reflux Disease, Hx Irritable Bowel, Hx Obstructive Bowel - SBO, Other GI Disorders - Diverticulitis Denies: Hx Cirrhosis, Hx Crohn's Disease, Hx Diverticulosis, Hx Gall Bladder Disease, Hx Gastrointestinal Bleed, Hx Hiatal Hernia, Hx Jaundice, Hx Ileostomy , Hx Pyloric Stenosis, Hx Ulcer History: Reports: Other Problems/Disorders - UTIs several x's a yr Denies: Hx Dialysis, Hx Renal Disease Musculoskeletal History: Reports: Hx Arthritis - DJD of neck, RA, Hx Back Problems, Hx Fibromyalgia, Other Musculoskeletal History - RHEUMATOID ARTHRITIS Denies: Hx Rheumatoid Arthritis, Hx Bursitis, Hx Congenital Bone Abnormalities, Hx Gout, Hx Orthopedic Injury, Hx Osteoporosis, Hx Scoliosis, Hx Tendonitis Sensory History: Reports: Hx Cataracts, Hx Contacts or Glasses, Hx Vision Problem Denies: Hx Eye Injury, Hx Eye Prosthesis, Hx Glaucoma, Hx Macular Degeneration, Hx Deafness, Hx Hearing Aid, Hx Hearing Problem, Other Sensory Impairments Opthamlomology History: Reports: Hx Cataracts, Hx Contacts or Glasses, Hx Vision Problem Denies: Hx Eye Injury, Hx Eye Prosthesis, Hx Glaucoma, Hx Macular Degeneration, Other Sensory Impairments Neurological History: Reports: Other Neuro Impairments/Disorders - Tardive dyskinesia Denies: Hx Dementia, Hx Seizures Psychiatric History: Reports: Hx Anxiety - LUPUS RELATED, Hx Eating Disorder, Hx Depression - LUPUS RELATED Denies: Hx Attention Deficit Hyperactivity Disorder, Hx Panic Disorder, Hx Post Traumatic Stress Disorder, Hx Inpatient Treatment, Hx Schizophrenia, Hx Bipolar Disorder, Hx Suicide Attempt, Hx Substance Abuse, Other Psychiatric Issues/Disorders - Cancer History Hx Chemotherapy: No - Surgical History Surgery Procedure, Year, and Place: . APPENDECTOMY 40 YEARS AGO (?) Hx Anesthesia Reactions: No Infectious Disease History: No Infectious Disease History: Denies: Hx Clostridium Difficile, Hx Hepatitis, Hx Human Immunodeficiency Virus (HIV), Hx of Known/Suspected MRSA, Hx Shingles, Hx Tuberculosis, Traveled Outside the [place] in Last 30 Days - Family History Known Family History: Negative: Hypertension - Social History Lives: Alone Alcohol Use: None Hx Substance Use: No Substance Use Type: Reports: None Hx Tobacco Use: Yes Smoking Status (MU): Former Smoker Type: Cigarettes Amount Used/How Often: 40 years Have You Smoked in the Last Year: No Review of Systems Negative: Fever, Chills Negative: Erythema Negative: Sore Throat Negative: Chest Pain Negative: Shortness Of Breath, Cough Positive: Diarrhea. Negative: Abdominal Pain, Vomiting, Nausea Positive: no symptoms reported. Negative: dysuria, hematuria Positive: Myalgia, Other - fall, bilateral hip pain, right knee pain, right thigh pain. Negative: Edema Negative: Rash Neurological: Other - Negative dizziness Negative: Headache All Other Systems Reviewed And Are Negative: Yes Physical Exam - Summary Physical Exam Summary: Constitutional: Well-developed, Well-nourished, Alert, Cooperative Skin: Warm, Dry, Right knee hot to the touch. HENT: Normocephalic; No Racoons eyes; No battles sign; No abrasion; No contusion ; No hemotympanum; No maxilla facial tenderness or instability; Dentition are smooth; No dental trauma; No trismus Eyes: EOM normal, PERRL Neck: Trachea is midline. No stridor; No JVD; No step off; No posterior cervical spine tenderness Cardio: Rhythm regular, rate normal Heart sounds normal; Intact distal pulses; The pedal pulses are 2+ and symmetric. Radial pulses are 2+ and symmetric. Pulmonary/Chest wall: Effort normal; Breath sounds normal; Equal chest rise; No flail segment; No rib tenderness; No sternal tenderness Abd: Soft, Appearance normal. No distension; No tenderness; No palpable pulsatile mass; No Cullens sign; No John-Turners sign Musculoskeletal: Full ROM and no tenderness at hips, ankles, shoulders, elbows and knees; No joint swelling; No vertebral body tenderness; No paraspinal tenderness; No step off or deformity of the spine; Pelvis is stable to lateral compression and rock. Right ribs 5-8 tender to palpation. Neuro: Alert, Oriented x3, Strength 5/5 all extremities. : No blood at urethral meatus Psych: Mood and affect Normal Triage Information Reviewed: Yes Vital Signs On Initial Exam: Initial Vitals Temp Pulse Resp BP Pulse Ox 100.3 F 113 16 131/65 95 01/30/17 17:22 01/30/17 17:22 01/30/17 17:22 01/30/17 17:22 01/30/17 17:22 Vital Signs Reviewed: Yes - [place] Coma Scale Coma Scale Total: 15 Diagnostics - Vital Signs Vital Signs Temp Pulse Resp BP Pulse Ox 01/30/17 17:22 100.3 F 113 16 131/65 95 - Laboratory Result Diagrams: 01/30/17 18:08 01/30/17 18:08 Lab Statement: Any lab studies that have been ordered have been reviewed, and results considered in the medical decision making process. - Radiology CXR Radiology Interpretation Completed By: Radiologist - Pending official interpretation from radiologist. See meditech. Hip X-Ray Radiology Interpretation Completed By: Radiologist - Pending official interpretation from radiologist. See meditech. Right Knee X-Ray Radiology Interpretation Completed By: Radiologist - Pending official interpretation from radiologist. See meditech. - CT Brain CT Interpretation Completed By: Radiologist - Chronic ischemic White matter change. No intracranial mass or hemorrhage is noted. No changes noted since February 12, 2014. ED physician has reviewed this radiology report and agrees. C-Spine CT Interpretation Completed By: Radiologist - No fracture of the cervical spine is noted. [place] area superior aspect of C4. ED physician has reviewed this radiology report and agrees. - EKG 1817 Cardiac Rate: NL - BPM 99 EKG Rhythm: Sinus Rhythm EKG Interpretation: No STEMI Adult Trauma Course/Dx - Course Assessment/Plan: This patient is an 86 year old F BIBA to [facility] accompanied by daughter s/p a mechanical fall earlier today. She also fell yesterday. Today she used her life alert button after my legs just gave out. The patient rates the pain 4/10 in severity. Symptoms aggravated by nothing. Symptoms alleviated by nothing. Patient reports diffuse myalgia, bilateral hip pain, right knee pain , right thigh pain, and diarrhea. Patient denies urinary symptoms, headache, and dizziness. An EKG reveals NSR. CT Brain reveals Chronic ischemic White matter change. No intracranial mass or hemorrhage is noted. No changes noted since February 12, 2014. ED physician has reviewed this radiology report and agrees. CT C-Spine reveals No fracture of the cervical spine is noted. Lucent area superior aspect of C4. ED physician has reviewed this radiology report and agrees. CXR, Hip X-ray, and Right Hip X-Ray all pending at this time. Sign out to Dr. Francois, pending dispo, awaiting XR, labs, and orthopedic consult. - Diagnoses Provider Diagnoses: Fall, SIRS (systemic inflammatory response syndrome) - Physician Notifications Discussed Care Of Patient With: Jah Armando Time Discussed With Above Provider: 18:44 Instructed by Provider To: Other - Consulted Dr. Curry (orthopedics) regarding concern for possible septic arthritis in the right knee and he will see the patient at [facility]. Discharge - Discharge Plan Condition: Stable Disposition: OTHER Discharge Disposition Comment: Sign out to Dr. Francois, pending dispo, awaiting XR, labs, and consult The documentation as recorded by the vanessaibLissett moore Alfonso accurately reflects the service I personally performed and the decisions made by me, Chang Vasquez MD.
--- NOTE | 2017-01-31 22:27 | CONS ---
ORTHOPEDIC CONSULTATION REPORT: DATE OF CONSULT: 01/30/17 REQUESTING SERVICE: ER. CHIEF COMPLAINT: Right knee pain. HISTORY OF PRESENT ILLNESS: Rafaela is an 86-year-old woman with lupus who was brought into the emergency room for generalized weakness. Upon questioning, she did report right knee pain and swelling over the past few weeks, so Orthopedics was consulted for this. Upon my questioning, she reports that she has been having some right knee pain and swelling over the last few weeks that was particularly bothersome last week, but has actually been improving over the last few days. PAST MEDICAL HISTORY: 1. Systemic lupus erythematosus. 2. Osteoporosis. 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 5. UTI's. 6. Hypertension. 7. Chronic pain. 8. Diarrhea. PHYSICAL EXAMINATION: She is well appearing and in no apparent distress. Nonlabored breathing. Examination of her bilateral hips reveals painless passive and active range of motion with both flexion and extension and internal and external rotation. Examination of her right lower extremity reveals the skin is intact throughout. There is [id number] knee joint effusion when compared to the other side. No warmth. No erythema. Active range of motion 0 to 90 and painless. No catching or locking. Distally, she has a palpable DP pulse. Sensation is intact. IMAGING: X-rays of her bilateral hips as well as her right knee were performed and did not show any fractures. LABORATORY DATA: White blood count 10, ESR 47, CRP 10. ASSESSMENT AND PLAN: Rafaela is an 86-year-old woman who came into the ER for generalized weakness. Ortho was consulted for right knee pain. At this time she has minimal pain, good range of motion and no evidence of infection such as swelling, erythema, warmth or pain. Additionally, she has good range of motion in the hips. Given this, I do not think she has a septic joint in the knee or the hips given the reassuring exam. Possible this is a lupus flare. It could also be something else, but the fact that it has been improving is promising. She is admitted, we will continue to follow her. When she is discharged, she can follow up as an outpatient should the knee pain recur. All of her and her daughter's questions were answered. [id number]/[facility] #: [id number] [facility] HOSPITALHetal
--- NOTE | 2017-02-01 16:07 | PN ---
Progress Note - Progress Note Date of Service: 02/01/17 Note: Patient urine culture grew Enterbacter cloacae 10-25,000. will wait for final culture.
== END 2017-01-30 22:16 | disposition home or self-care (01) ==
LOC: ED 17:14
DX: M25.552 Pain in left hip (principal); M25.551 Pain in right hip; M25.561 Pain in right knee; M79.651 Pain in right thigh; R19.7 Diarrhea, unspecified; R53.1 Weakness; R65.10 Systemic inflammatory response syndrome (SIRS) of non-infectious origin without acute organ dysfunction; Z91.81 History of falling; M32.9 Systemic lupus erythematosus, unspecified; Z86.718 Personal history of other venous thrombosis and embolism; K21.9 Gastro-esophageal reflux disease without esophagitis; Z87.440 Personal history of urinary (tract) infections; G24.01 Drug induced subacute dyskinesia; Z88.0 Allergy status to penicillin; Z87.891 Personal history of nicotine dependence
CPT/HCPCS: 36415; 70450; 71010; 72125; 73523; 80053; 80349; 81003; 81015; 82550; 83605; 83880; 84484; 85025; 85610; 85652; 85730; 86140; 87040; 87077; 87086; 87186; 93005; 96360; 96361; 99283; G0480

== ENCOUNTER 2017-03-03 10:55 | Emergency (ER) | payer MEDICARE, OTHER ==
[2017-03-03] MEDS ORDERED: HYDROcodone/ACETAMIN 5-325 MG* 1 TAB PO ONE (12:54)
[2017-03-03 15:13] LABS: Hematocrit 44 % (35-47); Hemoglobin 14.2 g/dl (12.0-16.0); Mean Corpuscular HGB Conc 32 g/dl (31-36); Mean Corpuscular Hemoglobin 30 pg (27-31); Mean Corpuscular Volume 93 fL (80-97); Mean Platelet Volume 8 um3 (7.4-10.4); Red Blood Count 4.71 10^6/ul (4.0-5.4); Red Cell Distribution Width 14 % (10.5-15); White Blood Count 10.6 10^3/ul (3.5-10.8)
[2017-03-03 15:50] LABS: Albumin 3.5 g/dL (3.2-5.2); BUN/Creatinine Ratio 24.1 (8-20); Calcium 8.6 mg/dL (8.6-10.3); EGFR African American 126.8 (>60); EGFR Non-African American 98.6 (>60); Globulin 1.7 g/dL (2-4); Potassium 3.8 mmol/L (3.5-5.0); Total Bilirubin 0.8 mg/dL (0.2-1.0); Total Protein 5.2 g/dL (6.4-8.9)
[2017-03-03 17:46] VITALS: BP 140/72
--- NOTE | 2017-03-03 18:57 | ED ---
Wes Salter Angela scribed for Chang Vasquez MD on 03/03/17 at 1252 . Complex/Multi-Sys Presentation - HPI Summary HPI Summary: This pt is an 86 y/o female presenting to [facility] via EMS from home c/o pain "all over" since this morning. Pt reports that she usually takes 2 pills of hydrocodone for the pain. She notes she ran out of her hydrocodone pills yesterday. Pt has not taken any pain medication today due to running out of hydrocodone. Pt denies any falls or injuries. She states that her daughter, Arcelia , can be called to notified she is in the hospital. PMHx includes lupus. - History Of Current Complaint Chief Complaint: EDGeneral Time Seen by Provider: 03/03/17 11:27 Hx Obtained From: Patient Onset/Duration: Lasting Hours, Still Present Timing: Hours Location: Pain At: - "all over" - Allergies/Home Medications Allergies/Adverse Reactions: Allergies Allergy/AdvReac Type Severity Reaction Status Date / Time Penicillins [PCN] Allergy Intermediate Rash Verified 12/21/15 11:22 PMH/Surg Hx/FS Hx/Imm Hx Endocrine/Hematology History: Reports: Hx Systemic Lupus Erythematosus, Other Endocrine/Hematological Disorders - LUPUS Denies: Hx Anticoagulant Therapy, Hx Blood Disorders, Hx Blood Transfusions, Hx Bone Marrow Disease, Hx Diabetes, Hx Sickle Cell Disease, Hx Thyroid Disease , Hx Anemia, Hx Unexplained Bleeding Cardiovascular History: Reports: Hx Deep Vein Thrombosis, Hx Embolism - Splenic artery thrombosis, Hx Hypertension Denies: Hx Congestive Heart Failure, Hx Pacemaker/ICD, Other Cardiovascular Problems/Disorders Respiratory History: Denies: Hx Asthma, Hx Chronic Obstructive Pulmonary Disease (COPD) GI History: Reports: Hx Gastroesophageal Reflux Disease, Hx Irritable Bowel, Hx Obstructive Bowel - SBO, Other GI Disorders - Diverticulitis Denies: Hx Cirrhosis, Hx Crohn's Disease, Hx Diverticulosis, Hx Gall Bladder Disease, Hx Gastrointestinal Bleed, Hx Hiatal Hernia, Hx Jaundice, Hx Ileostomy , Hx Pyloric Stenosis, Hx Ulcer History: Reports: Other Problems/Disorders - UTIs several x's a yr Denies: Hx Dialysis, Hx Renal Disease Musculoskeletal History: Reports: Hx Arthritis - DJD of neck, RA, Hx Back Problems, Hx Fibromyalgia, Other Musculoskeletal History - RHEUMATOID ARTHRITIS Denies: Hx Rheumatoid Arthritis, Hx Bursitis, Hx Congenital Bone Abnormalities, Hx Gout, Hx Orthopedic Injury, Hx Osteoporosis, Hx Scoliosis, Hx Tendonitis Sensory History: Reports: Hx Cataracts, Hx Contacts or Glasses, Hx Vision Problem Denies: Hx Eye Injury, Hx Eye Prosthesis, Hx Glaucoma, Hx Macular Degeneration, Hx Deafness, Hx Hearing Aid, Hx Hearing Problem, Other Sensory Impairments Opthamlomology History: Reports: Hx Cataracts, Hx Contacts or Glasses, Hx Vision Problem Denies: Hx Eye Injury, Hx Eye Prosthesis, Hx Glaucoma, Hx Macular Degeneration, Other Sensory Impairments Neurological History: Reports: Other Neuro Impairments/Disorders - Tardive dyskinesia Denies: Hx Dementia, Hx Seizures Psychiatric History: Reports: Hx Anxiety - LUPUS RELATED, Hx Eating Disorder, Hx Depression - LUPUS RELATED Denies: Hx Attention Deficit Hyperactivity Disorder, Hx Panic Disorder, Hx Post Traumatic Stress Disorder, Hx Inpatient Treatment, Hx Schizophrenia, Hx Bipolar Disorder, Hx Suicide Attempt, Hx Substance Abuse, Other Psychiatric Issues/Disorders - Cancer History Hx Chemotherapy: No - Surgical History Surgery Procedure, Year, and Place: . APPENDECTOMY 40 YEARS AGO (?) Hx Anesthesia Reactions: No Infectious Disease History: Yes Infectious Disease History: Denies: Hx Clostridium Difficile, Hx Hepatitis, Hx Human Immunodeficiency Virus (HIV), Hx of Known/Suspected MRSA, Hx Shingles, Hx Tuberculosis, Traveled Outside the [place] in Last 30 Days - Family History Known Family History: Negative: Hypertension - Social History Alcohol Use: None Hx Substance Use: No Substance Use Type: Reports: None Hx Tobacco Use: Yes Smoking Status (MU): Former Smoker Type: Cigarettes Amount Used/How Often: 40 years Have You Smoked in the Last Year: No Review of Systems Negative: Fever, Chills, Other - fall or injuries Negative: Erythema Negative: Sore Throat Negative: Chest Pain Negative: Shortness Of Breath, Cough Negative: Abdominal Pain, Vomiting, Nausea Negative: dysuria, hematuria Musculoskeletal: Other - pain "all over" Negative: Myalgia, Edema - legs Negative: Rash Neurological: Negative - dizziness All Other Systems Reviewed And Are Negative: Yes Physical Exam - Summary Physical Exam Summary: Constitutional: Well-developed, Well-nourished, Alert. (-) Distressed Skin: Warm, Dry HENT: Normocephalic; Atraumatic Eyes: Conjunctiva normal Neck: Musculoskeletal ROM normal neck. (-) JVD, (-) Stridor, (-) Tracheal deviation Cardio: Rhythm regular, rate normal, Heart sounds normal; Intact distal pulses; The pedal pulses are 2+ and symmetric. Radial pulses are 2+ and symmetric. (-) Murmur Pulmonary/Chest wall: Effort normal. (-) Respiratory distress, (-) Wheezes, (-) Rales Abd: Soft, (-) Tenderness, (-) Distension, (-) Guarding, (-) Rebound Musculoskeletal: (-) Edema Lymph: (-) Cervical adenopathy Neuro: Alert, Oriented x3. Pt is able to pull herself up. Psych: Mood and affect Normal Triage Information Reviewed: Yes Vital Signs On Initial Exam: Initial Vitals Temp Pulse Resp BP Pulse Ox 98 F 109 18 144/79 97 03/03/17 10:59 03/03/17 10:59 03/03/17 10:59 03/03/17 10:59 03/03/17 10:59 Vital Signs Reviewed: Yes - [place] Coma Scale Coma Scale Total: 15 Diagnostics - Vital Signs Vital Signs Temp Pulse Resp BP Pulse Ox 03/03/17 10:59 98 F 109 18 144/79 97 - Laboratory Result Diagrams: 03/03/17 15:02 03/03/17 15:02 Lab Statement: Any lab studies that have been ordered have been reviewed, and results considered in the medical decision making process. Complex Multi-Symp Course/Dx Assessment/Plan: This pt is an 86 y/o female presenting to [facility] via EMS from home c/o pain "all over" since this morning. Pt reports that she usually takes 2 pills of hydrocodone for the pain. She notes she ran out of her hydrocodone pills yesterday. Pt has not taken any pain medication today due to running out of hydrocodone. Pt denies any falls or injuries. She states that her daughter, Arcelia, can be called to notified she is in the hospital. PMHx includes lupus. Pt has signs and symptoms of opioid withdrawal. In the ED course, the pt was given Emery for the pain. The pt's pharmacy was called and the pt last filled her prescription for hydrocodone on February 13, 120 pills (a 60 day supply), which was used in 17 days. I also called the pt's daughter, Arcelia, and left a voicemail. The daughter has not returned the call. I also called pt's PCP, Dr. Mack, and told the nurse that the pt ran out of her medication, hydrocodone, 12 days early, which can be a potential overdose. I will prescribe a 3 day course of hydrocodone but they will need to make a decision about continuining the pt's hydrocodone and possibly investigating what happened to her medications. - Diagnoses Provider Diagnoses: Opioid withdrawal, Non compliance w medication regimen - Physician Notifications Discussed Care Of Patient With: Alex Mack Time Discussed With Above Provider: 14:50 Instructed by Provider To: Other - I called pt's PCP, Dr. Mack, and told the nurse that the pt ran out of her medication, hydrocodone, 12 days early, which can be a potential overdose. I will prescribe a 3 day course of hydrocodone but they need to make a decision about continuining the pt's hydrocodone and possibly investigating what happened to her medications. Discharge - Discharge Plan Condition: Stable Disposition: HOME Prescriptions: HYDROcodone/ACETAMIN 5-325 MG* [Emery 5-325 TAB*] 1 tab PO QID PRN #12 tab MDD 4 PRN Reason: Pain Patient Education Materials: Opioid Withdrawal (ED) Referrals: Alex Mack MD [Primary Care Provider] - Additional Instructions: Please follow up with your primary care provider, Dr. Mack. RETURN TO THE EMERGENCY DEPARTMENT FOR CHANGING OR WORSENING SYMPTOMS. The documentation as recorded by the Wes hoffman Angela accurately reflects the service I personally performed and the decisions made by me, Chang Vasquez MD.
== END 2017-03-03 17:44 | disposition home or self-care (01) ==
LOC: ED 10:55
DX: K80.20 Calculus of gallbladder without cholecystitis without obstruction (principal); K76.0 Fatty (change of) liver, not elsewhere classified
CPT/HCPCS: 36415; 80053; 80329; 85027; G0480

== ENCOUNTER 2017-09-09 09:48 | Emergency (ER) | payer MEDICARE, OTHER ==
[2017-09-09] MEDS ORDERED: NS 0.9% 1000 ML* 1,000 ML IV ONE (10:01)
[2017-09-09 10:19] LABS: Hematocrit 42 % (35-47); Hemoglobin 13.2 g/dl (12.0-16.0); Mean Corpuscular HGB Conc 32 g/dl (31-36); Mean Corpuscular Hemoglobin 30 pg (27-31); Mean Corpuscular Volume 96 fL (80-97); Mean Platelet Volume 7.5 um3 (7.4-10.4); Platelet Count 280 10^3/ul (150-450); Red Blood Count 4.38 10^6/ul (4.0-5.4); Red Cell Distribution Width 15 % (10.5-15); White Blood Count 11.9 10^3/ul (3.5-10.8)
[2017-09-09 10:28] LABS: INR 3.53 (0.77-1.02)
[2017-09-09 10:41] LABS: EGFR Non-African American 94.6 (>60)
--- NOTE | 2017-09-09 10:41 | RAD ---
HISTORY: Weakness COMPARISONS: January 30, 2017 TECHNIQUE: Multiple contiguous axial CT scans were obtained of the head without intravenous contrast. FINDINGS: HEMORRHAGE/INFARCT: There is no hemorrhage or acute infarct. MASSES/SHIFT: There is no mass or shift. EXTRA-AXIAL SPACES: There are no extra-axial fluid collections. SULCI AND VENTRICLES: The sulci and ventricles are normal in size and position for the patient's stated age. CEREBRUM: There is hypoattenuation of the periventricular and subcortical white matter. BRAINSTEM: There are no focal parenchymal abnormalities. CEREBELLUM: There are no focal parenchymal abnormalities. VESSELS: There is calcification of the cavernous segments of the internal carotid arteries bilaterally and of the distal vertebral arteries bilaterally. PARANASAL SINUSES: The paranasal sinuses are clear. ORBITS: The orbits are unremarkable. BONES AND SOFT TISSUE: No bone or soft tissue abnormalities are noted. OTHER: None IMPRESSION: 1. NO ACUTE INTRACRANIAL PATHOLOGY. 2. CHRONIC SMALL VESSEL ISCHEMIC CHANGE.
[2017-09-09 10:46] LABS: ABS Basophils 0.1 10^3/ul (0-0.2); ABS Eosinophils 0.1 10^3/ul (0-0.6); ABS Lymphocytes 2.1 10^3/ul (1.0-4.8); ABS Monocytes 0.9 10^3/ul (0-0.8); ABS Neutrophils 8.6 10^3/ul (1.5-7.7); ABS Nucleated RBC 0 10^3/ul; Eosinophil % 0.7 % (0-6); Lymphocyte % 17.7 % (25-47); Nucleated Red Blood Cells % 0
--- NOTE | 2017-09-09 10:52 | RAD ---
HISTORY: Chest pain COMPARISONS: January 30, 2017 VIEWS: 1: frontal portable view of the chest at 10:45 AM FINDINGS: LINES AND TUBES: None. CARDIOMEDIASTINAL SILHOUETTE: The cardiomediastinal silhouette is normal for portable technique. PLEURA: The costophrenic angles are sharp. No pleural abnormalities are noted. LUNG PARENCHYMA: There is hyperinflation. ABDOMEN: The upper abdomen is clear. There is no subphrenic gas. BONES AND SOFT TISSUES: There is a scoliotic curvature of the spine. Mild degenerative changes are noted. IMPRESSION: HYPERINFLATION. NO ACTIVE CARDIOPULMONARY DISEASE.
[2017-09-09 11:17] LABS: Urine Appearance Cloudy; Urine Color Yellow
[2017-09-09 11:19] LABS: Urine Urobilinogen Negative (Negative)
[2017-09-09 11:20] LABS: Urine Blood 2+ (Negative); Urine Ketones Negative (Negative); Urine Protein 1+(30 mg/dL) (Negative)
[2017-09-09] MEDS ORDERED: Levofloxacin TAB* 500 MG PO ONE (11:50)
[2017-09-09] MEDS ORDERED: Acetaminophen TAB* 325 MG PO ONE (13:07)
--- NOTE | 2017-09-09 13:14 | RAD ---
HISTORY: Bilateral leg pain COMPARISONS: August 23, 2014 TECHNIQUE: Multiple transverse and longitudinal ultrasound images were obtained of the bilateral lower extremities from the level of the common femoral vein inferiorly through to the infrapopliteal veins using grayscale, color Doppler, and spectral Doppler imaging with and without compression and with augmentation. FINDINGS: VEINS: The venous system of the bilateral lower extremities is compressible throughout its course, with normal flow on color Doppler imaging and normal response to augmentation on spectral Doppler imaging. SOFT TISSUES: Unremarkable. OTHER FINDINGS: None. IMPRESSION: NO RIGHT LOWER EXTREMITY DEEP VEIN THROMBOSIS. NO LEFT LOWER EXTREMITY DEEP VEIN THROMBOSIS
[2017-09-09 14:25] VITALS: BP 140/75
--- NOTE | 2017-09-09 15:30 | ED ---
Connor Salter Stephanie, scribed for Kamar Cisneros on 09/09/17 at 1008 . Complex/Multi-Sys Presentation - HPI Summary HPI Summary: The pt is an 87 y/o F BIBA to the ED with c/o muscle pain that began at 09:49. Symptoms include bilateral leg pain, bilateral feet pain and abd pain with deep breaths. The pt states she is unable to lift her head. The pt reports she is having trouble with her memory. - History Of Current Complaint Chief Complaint: EDUrogenitalProblems Time Seen by Provider: 09/09/17 09:51 Hx Obtained From: Patient, EMS Onset/Duration: Gradual Onset, Still Present Timing: Constant Severity Currently: Mild Aggravating Factor(s): Nothing Alleviating Factor(s): Nothing Associated Signs And Symptoms: Positive: Confusion, Other - bilateral leg pain, bilateral feet pain and abd pain with deep breaths - Allergies/Home Medications Allergies/Adverse Reactions: Allergies Allergy/AdvReac Type Severity Reaction Status Date / Time Penicillins Allergy Rash Verified 09/09/17 09:51 Home Medications: Home Medications HYDROcodone/ACETAMIN 5-325 MG* [[place] 5-325 TAB*] 1 tab PO Q4H PRN MDD 4 [History Confirmed 09/09/17] Mycophenolate Mofetil TAB(*) [Cellcept TAB(*)] 500 mg PO BID 09/09/17 [History Confirmed 09/09/17] Omeprazole CAP* [Prilosec CAP* 20 MG] 20 mg PO QAM 09/09/17 [History Confirmed 09/09/17] PMH/Surg Hx/FS Hx/Imm Hx Endocrine/Hematology History: Reports: Hx Systemic Lupus Erythematosus, Other Endocrine/Hematological Disorders - LUPUS Denies: Hx Anticoagulant Therapy, Hx Blood Disorders, Hx Blood Transfusions, Hx Bone Marrow Disease, Hx Diabetes, Hx Sickle Cell Disease, Hx Thyroid Disease , Hx Anemia, Hx Unexplained Bleeding Cardiovascular History: Reports: Hx Deep Vein Thrombosis, Hx Embolism - Splenic artery thrombosis, Hx Hypertension Denies: Hx Congestive Heart Failure, Hx Pacemaker/ICD, Other Cardiovascular Problems/Disorders Respiratory History: Denies: Hx Asthma, Hx Chronic Obstructive Pulmonary Disease (COPD) GI History: Reports: Hx Gastroesophageal Reflux Disease, Hx Irritable Bowel, Hx Obstructive Bowel - SBO, Other GI Disorders - Diverticulitis Denies: Hx Cirrhosis, Hx Crohn's Disease, Hx Diverticulosis, Hx Gall Bladder Disease, Hx Gastrointestinal Bleed, Hx Hiatal Hernia, Hx Jaundice, Hx Ileostomy , Hx Pyloric Stenosis, Hx Ulcer History: Reports: Other Problems/Disorders - UTIs several x's a yr Denies: Hx Dialysis, Hx Renal Disease Musculoskeletal History: Reports: Hx Arthritis - DJD of neck, RA, Hx Back Problems, Hx Fibromyalgia, Other Musculoskeletal History - RHEUMATOID ARTHRITIS Denies: Hx Rheumatoid Arthritis, Hx Bursitis, Hx Congenital Bone Abnormalities, Hx Gout, Hx Orthopedic Injury, Hx Osteoporosis, Hx Scoliosis, Hx Tendonitis Sensory History: Reports: Hx Cataracts, Hx Contacts or Glasses, Hx Vision Problem Denies: Hx Eye Injury, Hx Eye Prosthesis, Hx Glaucoma, Hx Macular Degeneration, Hx Deafness, Hx Hearing Aid, Hx Hearing Problem, Other Sensory Impairments Opthamlomology History: Reports: Hx Cataracts, Hx Contacts or Glasses, Hx Vision Problem Denies: Hx Eye Injury, Hx Eye Prosthesis, Hx Glaucoma, Hx Macular Degeneration, Other Sensory Impairments Neurological History: Reports: Other Neuro Impairments/Disorders - Tardive dyskinesia Denies: Hx Dementia, Hx Seizures Psychiatric History: Reports: Hx Anxiety - LUPUS RELATED, Hx Eating Disorder, Hx Depression - LUPUS RELATED Denies: Hx Attention Deficit Hyperactivity Disorder, Hx Panic Disorder, Hx Post Traumatic Stress Disorder, Hx Inpatient Treatment, Hx Schizophrenia, Hx Bipolar Disorder, Hx Suicide Attempt, Hx Substance Abuse, Other Psychiatric Issues/Disorders - Cancer History Hx Chemotherapy: No - Surgical History Surgery Procedure, Year, and Place: . APPENDECTOMY 40 YEARS AGO (?) Hx Anesthesia Reactions: No Infectious Disease History: No Infectious Disease History: Denies: Hx Clostridium Difficile, Hx Hepatitis, Hx Human Immunodeficiency Virus (HIV), Hx of Known/Suspected MRSA, Hx Shingles, Hx Tuberculosis, Traveled Outside the [place] in Last 30 Days - Family History Known Family History: Negative: Hypertension - Social History Occupation: Retired Lives: [facility] Alcohol Use: None Hx Substance Use: No Substance Use Type: Reports: None Hx Tobacco Use: Yes Smoking Status (MU): Former Smoker Type: Cigarettes Amount Used/How Often: 40 years Have You Smoked in the Last Year: No Review of Systems Positive: Other - "unable to lift head". Negative: Fever Positive: Abdominal Pain - with deep breaths Positive: Other - bilateral leg pain, bilateral feet pain Neurological: Other - difficulty with memory recently All Other Systems Reviewed And Are Negative: Yes Physical Exam - Summary Physical Exam Summary: Appearance: Well appearing, no pain distress Skin: warm, dry, reflects adequate perfusion Head/face: normal Eyes: EOMI, ANDREW ENT: dry mucous membranes Neck: supple, non-tender Respiratory: CTA, breath sounds present Cardiovascular: RRR, pulses symmetrical Abdomen: non-tender, soft Bowel: present Musculoskeletal: strength/ROM intact, tenderness over L chest Neuro: sensory motor intact, alert and confused Triage Information Reviewed: Yes Vital Signs On Initial Exam: Initial Vitals Temp Pulse Resp BP Pulse Ox 99.7 F 87 16 156/106 98 09/09/17 09:49 09/09/17 09:49 09/09/17 09:49 09/09/17 09:49 09/09/17 09:49 Vital Signs Reviewed: Yes Diagnostics - Vital Signs Vital Signs Temp Pulse Resp BP Pulse Ox 09/09/17 09:49 99.7 F 87 16 156/106 98 - Laboratory Lab Results: Lab Results 09/09/17 09/09/17 09/09/17 Range/Units 10:10 10:10 10:10 WBC 11.9 H (3.5-10.8) 10^3/ul RBC 4.38 (4.0-5.4) 10^6/ul Hgb 13.2 (12.0-16.0) g/dl Hct 42 (35-47) % MCV 96 (80-97) fL MCH 30 (27-31) pg MCHC 32 (31-36) g/dl RDW 15 (10.5-15) % Plt Count 280 (150-450) 10^3/ul MPV 7.5 (7.4-10.4) um3 Neut % (Auto) 72.9 (38-83) % Lymph % (Auto) 17.7 L (25-47) % [place] % (Auto) 7.9 H (0-7) % Eos % (Auto) 0.7 (0-6) % Baso % (Auto) 0.8 (0-2) % Absolute Neuts (auto) 8.6 H (1.5-7.7) 10^3/ul Absolute Lymphs (auto) 2.1 (1.0-4.8) 10^3/ul Absolute Monos (auto) 0.9 H (0-0.8) 10^3/ul Absolute Eos (auto) 0.1 (0-0.6) 10^3/ul Absolute Basos (auto) 0.1 (0-0.2) 10^3/ul Absolute Nucleated RBC 0 10^3/ul Nucleated RBC % 0 INR (Anticoag Therapy) 3.53 H (0.77-1.02) APTT 39.8 H (26.0-36.3) seconds Sodium 139 (139-145) mmol/L Potassium 3.6 (3.5-5.0) mmol/L Chloride 107 (101-111) mmol/L Carbon Dioxide 24 (22-32) mmol/L Anion Gap 8 (2-11) mmol/L BUN 19 (6-24) mg/dL Creatinine 0.60 (0.51-0.95) mg/dL Est GFR ( Amer) 121.6 (>60) Est GFR (Non-Af Amer) 94.6 (>60) BUN/Creatinine Ratio 31.7 H (8-20) Glucose 86 (70-100) mg/dL Lactic Acid (0.5-2.0) mmol/L Calcium 8.4 L (8.6-10.3) mg/dL Magnesium 1.9 (1.9-2.7) mg/dL Total Bilirubin 0.30 (0.2-1.0) mg/dL AST 13 (13-39) U/L ALT 13 (7-52) U/L Alkaline Phosphatase 54 (34-104) U/L Total Creatine Kinase 36 (10-223) U/L Troponin I 0.00 (<0.04) ng/mL B-Natriuretic Peptide ( - 100) pg/mL Total Protein 5.6 L (6.4-8.9) g/dL Albumin 3.3 (3.2-5.2) g/dL Globulin 2.3 (2-4) g/dL Albumin/Globulin Ratio 1.4 (1-3) Lipase 20 (11.0-82.0) U/L Urine Color Urine Appearance Urine pH (5-9) Ur Specific [place] (1.010-1.030) Urine Protein (Negative) Urine Ketones (Negative) Urine Blood (Negative) Urine Nitrate (Negative) Urine Bilirubin (Negative) Urine Urobilinogen (Negative) Ur Leukocyte Esterase (Negative) Urine WBC (Auto) (Absent) Urine RBC (Auto) (Absent) Urine Bacteria (Absent) Urine Glucose (Negative) 09/09/17 09/09/17 09/09/17 Range/Units 10:10 10:10 10:30 WBC (3.5-10.8) 10^3/ul RBC (4.0-5.4) 10^6/ul Hgb (12.0-16.0) g/dl Hct (35-47) % MCV (80-97) fL MCH (27-31) pg MCHC (31-36) g/dl RDW (10.5-15) % Plt Count (150-450) 10^3/ul MPV (7.4-10.4) um3 Neut % (Auto) (38-83) % Lymph % (Auto) (25-47) % [place] % (Auto) (0-7) % Eos % (Auto) (0-6) % Baso % (Auto) (0-2) % Absolute Neuts (auto) (1.5-7.7) 10^3/ul Absolute Lymphs (auto) (1.0-4.8) 10^3/ul Absolute Monos (auto) (0-0.8) 10^3/ul Absolute Eos (auto) (0-0.6) 10^3/ul Absolute Basos (auto) (0-0.2) 10^3/ul Absolute Nucleated RBC 10^3/ul Nucleated RBC % INR (Anticoag Therapy) (0.77-1.02) APTT (26.0-36.3) seconds Sodium (139-145) mmol/L Potassium (3.5-5.0) mmol/L Chloride (101-111) mmol/L Carbon Dioxide (22-32) mmol/L Anion Gap (2-11) mmol/L BUN (6-24) mg/dL Creatinine (0.51-0.95) mg/dL Est GFR ( Amer) (>60) Est GFR (Non-Af Amer) (>60) BUN/Creatinine Ratio (8-20) Glucose (70-100) mg/dL Lactic Acid 1.4 (0.5-2.0) mmol/L Calcium (8.6-10.3) mg/dL Magnesium (1.9-2.7) mg/dL Total Bilirubin (0.2-1.0) mg/dL AST (13-39) U/L ALT (7-52) U/L Alkaline Phosphatase (34-104) U/L Total Creatine Kinase (10-223) U/L Troponin I (<0.04) ng/mL B-Natriuretic Peptide 125 H ( - 100) pg/mL Total Protein (6.4-8.9) g/dL Albumin (3.2-5.2) g/dL Globulin (2-4) g/dL Albumin/Globulin Ratio (1-3) Lipase (11.0-82.0) U/L Urine Color Yellow Urine Appearance Cloudy Urine pH 7 (5-9) Ur Specific [place] 1.010 (1.010-1.030) Urine Protein 1+(30 mg/dl) A (Negative) Urine Ketones Negative (Negative) Urine Blood 2+ A (Negative) Urine Nitrate Negative (Negative) Urine Bilirubin Negative (Negative) Urine Urobilinogen Negative (Negative) Ur Leukocyte Esterase 3+ A (Negative) Urine WBC (Auto) 2+(11-20/hpf) A (Absent) Urine RBC (Auto) 1+(3-5/hpf) A (Absent) Urine Bacteria 1+ A (Absent) Urine Glucose Negative (Negative) Result Diagrams: 09/09/17 10:10 09/09/17 10:10 Lab Statement: Any lab studies that have been ordered have been reviewed, and results considered in the medical decision making process. - Radiology CXR Xray Interpretation: No Acute Changes Radiology Interpretation Completed By: Radiologist - HYPERINFLATION. NO ACTIVE CARDIOPULMONARY DISEASE. ED physician has reviewed this report. - CT Brain CT Interpretation: No Acute Changes CT Interpretation Completed By: Radiologist - 1. NO ACUTE INTRACRANIAL PATHOLOGY. 2. CHRONIC SMALL VESSEL ISCHEMIC CHANGE. ED physician has reviewed this report. - EKG 10:04 Cardiac Rate: NL EKG Rhythm: Sinus Rhythm - [address] Segment: Normal Ectopy: None EKG Interpretation: No acute changes - Additional Comments Diagnostic Additional Comments: Venous Doppler reveals: NO RIGHT LOWER EXTREMITY DEEP VEIN THROMBOSIS. NO LEFT LOWER EXTREMITY DEEP VEIN THROMBOSIS. ED physician has reviewed this report. Complex Multi-Symp Course/Dx Course Of Treatment: The pt is an 87 y/o F BIBA to the ED with c/o muscle pain that began at 09:49. Symptoms include bilateral leg pain, bilateral feet pain and abd pain with deep breaths. - Diagnoses Differential Diagnoses/HQI/PQRI: Sepsis, Urinary Tract Infection, Other - dementia Provider Diagnoses: UTI (urinary tract infection), Dementia Discharge - Sign-Out/Discharge Documenting (check all that apply): Discharge/Admit/Transfer - Discharge - Discharge Plan Condition: Stable Disposition: HOME Prescriptions: Levofloxacin TAB* [Levaquin TAB*] 500 mg PO DAILY #4 tab Patient Education Materials: Urinary Tract Infection in Older Adults (ED) Referrals: Alex Mack MD [Primary Care Provider] - 3 Days Additional Instructions: Return to the ED for new or worsening symptoms. - Billing Disposition and Condition Condition: STABLE Disposition: HOME The documentation as recorded by the Connor hoffman Stephanie accurately reflects the service I personally performed and the decisions made by Blayne chacon Emmanuel.
--- NOTE | 2017-09-11 08:34 | PN ---
Progress Note - Progress Note Date of Service: 09/11/17 Note: Urine culture preliminary grew Proteus Mirabilis > 100,000 Patient is placed on Levaquin prior to discharge Levaquin likely sensitive to Proteus species We will await sensitivities Nothing further at this time Beatrice Bazzi, PAC
--- NOTE | 2017-09-13 07:17 | PN ---
Progress Note - Progress Note Date of Service: 09/09/17 Note: Pt. seen in ER 09/09 and started on levaquin for UTI. Urine culture today is growing >100,000 proteus mirabilis susceptible to levaquin. No change in treatment needed at this time.
== END 2017-09-09 14:25 | disposition home or self-care (01) ==
LOC: ED 09:48
DX: N39.0 Urinary tract infection, site not specified (principal); B96.4 Proteus (mirabilis) (morganii) as the cause of diseases classified elsewhere; F03.90 Unspecified dementia, unspecified severity, without behavioral disturbance, psychotic disturbance, mood disturbance, and anxiety; M79.605 Pain in left leg; M79.604 Pain in right leg; M79.672 Pain in left foot; M79.671 Pain in right foot; J98.4 Other disorders of lung; Z87.891 Personal history of nicotine dependence; Z86.718 Personal history of other venous thrombosis and embolism; Z88.0 Allergy status to penicillin
CPT/HCPCS: 36415; 70450; 71045; 80053; 81003; 81015; 82550; 83605; 83690; 83735; 83880; 84484; 85025; 85610; 85730; 87077; 87086; 87088; 87184; 87186; 93005; 93970; 96360; 96361; 99284; A9270-GY

== ENCOUNTER 2017-09-24 19:43 | Emergency (ER) | payer MEDICARE, OTHER ==
[2017-09-24] MEDS ORDERED: NS 0.9% 1000 ML* 1,000 ML IV ONE (20:03)
[2017-09-24] MEDS ORDERED: cefTRIAXone(*) 1 GM in NS 0.9% 50 ML* 50 ML IVPB ONE (20:07)
[2017-09-24 21:31] LABS: ABS Basophils 0.1 10^3/ul (0-0.2); ABS Eosinophils 0 10^3/ul (0-0.6); ABS Lymphocytes 1.9 10^3/ul (1.0-4.8); ABS Monocytes 0.7 10^3/ul (0-0.8); ABS Neutrophils 9.3 10^3/ul (1.5-7.7); ABS Nucleated RBC 0 10^3/ul; Eosinophil % 0.3 % (0-6); Hematocrit 44 % (35-47); Hemoglobin 13.7 g/dl (12.0-16.0); Lymphocyte % 16.2 % (25-47); Mean Corpuscular HGB Conc 32 g/dl (31-36); Mean Corpuscular Hemoglobin 30 pg (27-31); Mean Corpuscular Volume 96 fL (80-97); Mean Platelet Volume 7.6 um3 (7.4-10.4); Nucleated Red Blood Cells % 0.1; Platelet Count 327 10^3/ul (150-450); Red Blood Count 4.55 10^6/ul (4.0-5.4); Red Cell Distribution Width 15 % (10.5-15); White Blood Count 12.1 10^3/ul (3.5-10.8)
[2017-09-24 21:44] LABS: Urine Appearance Clear; Urine Blood 2+ (Negative); Urine Color Colorless; Urine Ketones Negative (Negative); Urine Protein Negative (Negative); Urine Specific Gravity 1.002 (1.010-1.030); Urine Urobilinogen Negative (Negative)
[2017-09-24 21:50] LABS: EGFR Non-African American 96.4 (>60)
[2017-09-24] MEDS ORDERED: Iohexol 300* (CONTRAST) 10 ML SDV IV ONE (21:56)
[2017-09-24] MEDS ORDERED: RiFAXimin* 550 MG TAB PO ONE (23:33)
[2017-09-25 00:35] VITALS: BP 178/90
--- NOTE | 2017-09-25 07:57 | RAD ---
CLINICAL HISTORY: abd pain COMPARISON: January 11, 2017 TECHNIQUE: Multiple contiguous axial CT scans were obtained of the abdomen and pelvis after the administration of intravenous contrast. Coronal and sagittal multiplanar reformations are submitted for review. Oral contrast was not administered. Delayed images were obtained through the abdomen. FINDINGS: LUNG BASES: There is a trace left pleural effusion. Coronary artery calcification is noted. LIVER: The liver is diffusely low in attenuation compared to the spleen. There are no focal hepatic parenchymal masses. BILE DUCTS: There is no intrahepatic or extrahepatic biliary dilatation. GALLBLADDER: The gallbladder is normal, without pericholecystic inflammatory change. PANCREAS: The pancreas is normal, without mass or ductal dilatation. SPLEEN: There is evidence of previous splenic infarct, stable from previous examinations. UPPER GI TRACT: Evaluation of the gastrointestinal tract is limited by incomplete gastric distention. There is a 3 cm diverticulum of the second stage of the duodenum. SMALL BOWEL AND MESENTERY: The small bowel is normal in contour, course, and caliber. There is no obstruction or dilatation. COLON: There are multiple diverticula of the sigmoid colon. There is no pericolonic inflammatory change. The appendix not clearly visualized. There is no inflammatory change within the right lower quadrant. ADRENALS: Normal bilaterally. KIDNEYS: There are multiple renal cysts bilaterally. On the left, these are multiseptated with calcified septa without enhancement. This is stable from January 11, 2017, consistent with positive type II cysts. There is no appreciable hydronephrosis or nephrolithiasis. BLADDER: The bladder is smooth in contour. PELVIC ORGANS: There are calcified uterine fibroids. AORTA: There is calcific atherosclerotic disease of the abdominal aorta and its branches, without aneurysmal dilatation IVC: Unremarkable LYMPH NODES: There is no lymphadenopathy by size criteria. ABDOMINAL WALL: There is no evidence for abdominal wall hernia. BONES AND SOFT TISSUES: There is a scoliotic curvature of the spine. Degenerative changes are noted. OTHER: None IMPRESSION: 1. DIVERTICULOSIS. 2. ATHEROSCLEROSIS, INCLUDING CORONARY ARTERY DISEASE. 3. DUODENAL DIVERTICULUM. 4. FIBROID UTERUS. 5. 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 6. TRACE LEFT PLEURAL EFFUSION.
--- NOTE | 2017-09-26 02:42 | ED ---
Aylin Salter Rebecca, scribed for Giovanna Cazares MD on 09/24/17 at 2005 . Altered Mental Status - HPI Summary HPI Summary: Pt is an 87 y/o F BIBA who presents to ED due to AMS characterized as confusion. Family report that since her last UTI 2 weeks ago that she has been increasingly confused accompanied by generalized weakness. Additionally c/o suprapubic abdominal pain. Denies vomiting. Able to recall name and , but per nurse's triage, her family states that she cannot recall their names or recent events. Pt was given Levaquin for UTI and was discharged back to home. Lives at home with her daughter. 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 - Family, Medical Records - Nurse's triage Onset/Duration: Still Present Severity Currently: Severe - 01/24 pain Character: Confusion Associated Signs And Symptoms: Positive: Weakness - Generalized Related History: Other: - Since UTI - Allergies/Home Medications Allergies/Adverse Reactions: Allergies Allergy/AdvReac Type Severity Reaction Status Date / Time Penicillins Allergy Rash Verified 09/24/17 19:54 Home Medications: Home Medications Ciprofloxacin HCl [Cipro] 250 mg PO BID 09/24/17 [History Confirmed 09/24/17] Warfarin TAB(*) [Coumadin TAB(*)] 2.5 mg PO SEE INSTRUCTIONS 09/24/17 [History Confirmed 09/24/17] PMH/Surg Hx/FS Hx/Imm Hx Endocrine/Hematology History: Reports: Hx Systemic Lupus Erythematosus, Other Endocrine/Hematological Disorders - LUPUS Denies: Hx Anticoagulant Therapy, Hx Blood Disorders, Hx Blood Transfusions, Hx Bone Marrow Disease, Hx Diabetes, Hx Sickle Cell Disease, Hx Thyroid Disease , Hx Anemia, Hx Unexplained Bleeding Cardiovascular History: Reports: Hx Deep Vein Thrombosis, Hx Embolism - Splenic artery thrombosis, Hx Hypertension Denies: Hx Congestive Heart Failure, Hx Pacemaker/ICD, Other Cardiovascular Problems/Disorders Respiratory History: Denies: Hx Asthma, Hx Chronic Obstructive Pulmonary Disease (COPD) GI History: Reports: Hx Gastroesophageal Reflux Disease, Hx Irritable Bowel, Hx Obstructive Bowel - SBO, Other GI Disorders - Diverticulitis Denies: Hx Cirrhosis, Hx Crohn's Disease, Hx Diverticulosis, Hx Gall Bladder Disease, Hx Gastrointestinal Bleed, Hx Hiatal Hernia, Hx Jaundice, Hx Ileostomy , Hx Pyloric Stenosis, Hx Ulcer History: Reports: Other Problems/Disorders - UTIs several x's a yr Denies: Hx Dialysis, Hx Renal Disease Musculoskeletal History: Reports: Hx Arthritis - DJD of neck, RA, Hx Back Problems, Hx Fibromyalgia, Other Musculoskeletal History - RHEUMATOID ARTHRITIS Denies: Hx Rheumatoid Arthritis, Hx Bursitis, Hx Congenital Bone Abnormalities, Hx Gout, Hx Orthopedic Injury, Hx Osteoporosis, Hx Scoliosis, Hx Tendonitis Sensory History: Reports: Hx Cataracts, Hx Contacts or Glasses, Hx Vision Problem Denies: Hx Eye Injury, Hx Eye Prosthesis, Hx Glaucoma, Hx Macular Degeneration, Hx Deafness, Hx Hearing Aid, Hx Hearing Problem, Other Sensory Impairments Opthamlomology History: Reports: Hx Cataracts, Hx Contacts or Glasses, Hx Vision Problem Denies: Hx Eye Injury, Hx Eye Prosthesis, Hx Glaucoma, Hx Macular Degeneration, Other Sensory Impairments Neurological History: Reports: Other Neuro Impairments/Disorders - Tardive dyskinesia Denies: Hx Dementia, Hx Seizures Psychiatric History: Reports: Hx Anxiety - LUPUS RELATED, Hx Eating Disorder, Hx Depression - LUPUS RELATED Denies: Hx Attention Deficit Hyperactivity Disorder, Hx Panic Disorder, Hx Post Traumatic Stress Disorder, Hx Inpatient Treatment, Hx Schizophrenia, Hx Bipolar Disorder, Hx Suicide Attempt, Hx Substance Abuse, Other Psychiatric Issues/Disorders - Cancer History Hx Chemotherapy: No - Surgical History Surgery Procedure, Year, and Place: . APPENDECTOMY 40 YEARS AGO (?) Hx Anesthesia Reactions: No Infectious Disease History: No Infectious Disease History: Denies: Hx Clostridium Difficile, Hx Hepatitis, Hx Human Immunodeficiency Virus (HIV), Hx of Known/Suspected MRSA, Hx Shingles, Hx Tuberculosis, Traveled Outside the [place] in Last 30 Days - Family History Known Family History: Negative: Hypertension - Social History Alcohol Use: None Hx Substance Use: No Substance Use Type: Reports: None Hx Tobacco Use: Yes Smoking Status (MU): Former Smoker Type: Cigarettes Amount Used/How Often: 40 years Have You Smoked in the Last Year: No Review of Systems Positive: Other - Generalized weakness Positive: Abdominal Pain. Negative: Vomiting Neurological: Other - AMS - confused All Other Systems Reviewed And Are Negative: Yes Physical Exam - Summary Physical Exam Summary: VITAL SIGNS: Reviewed. GENERAL: ~Patient is a well-developed and nourished female who is lying comfortable in the stretcher. Patient is not in any acute respiratory distress. SHe seems dehydrated. HEAD AND FACE: No signs of trauma. No ecchymosis, hematomas or skull depressions. No sinus tenderness. EYES: PERRLA, EOMI x 2, No injected conjunctiva, no nystagmus. EARS: Hearing grossly intact. Ear canals and tympanic membranes are within normal limits. MOUTH: Oropharynx within normal limits. NECK: Supple, trachea is midline, no adenopathy, no JVD, no carotid bruit, no c- spine tenderness, neck with full ROM. CHEST: Symmetric, no tenderness at palpation LUNGS: Clear to auscultation bilaterally. No wheezing or crackles. CVS: Regular rate and rhythm, S1 and S2 present, no murmurs or gallops appreciated. ABDOMEN: Soft, non-tender. Distended No rebound no guarding, and no masses palpated. Hypoactive bowel sounds. EXTREMITIES: FROM in all major joints, no edema, no cyanosis or clubbing. NEURO: Alert and oriented x 3. No acute neurological deficits. Speech is normal and follows commands. SKIN: Dry and warm Triage Information Reviewed: Yes Vital Signs On Initial Exam: Initial Vitals Temp Pulse Resp BP Pulse Ox 97.8 F 70 14 169/94 98 09/24/17 19:52 09/24/17 19:52 09/24/17 19:52 09/24/17 19:52 09/24/17 19:52 Vital Signs Reviewed: Yes Diagnostics - Vital Signs Vital Signs Temp Pulse Resp BP Pulse Ox 09/24/17 19:52 97.8 F 70 14 169/94 98 - Laboratory Result Diagrams: 09/24/17 21:22 09/24/17 21:22 Lab Statement: Any lab studies that have been ordered have been reviewed, and results considered in the medical decision making process. - CT CT Abd/Pel CT Interpretation Completed By: Radiologist - Calcified coronary artery arteriosclerosis. Small left pleural effusion. Hypodense lesion in the spleen unchanged. Complex nonspecific bilateral renal cortical cysts. Moderate arteriosclerosis of the abdominal and pelvic vasculature. Large gas and fluid- filled duodenal diverticulum extends medically off the second portion of the duodenum near the pancreatic head may be associated with bacterial overgrowth of the proximal small bowel. Diverticulosis of the colon without diverticulitis. Heterogeneous calcified uterine mass most likely due to uterine fibroids. ED physician reviewed this report. Pending official report. - EKG 2049 Cardiac Rate: NL - 68 bpm EKG Rhythm: Sinus Rhythm EKG Interpretation: Short CA, LAD, no ischemic changes Re-Evaluation - Re-Evaluation First Eval Re-Evaluation Time: 23:40 Comment: Discussed results and D/C plan. Altered Mental Statu Course/Dx - Course Assessment/Plan: Pt is an 87 y/o F BIBA who presents to ED due to AMS characterized as confusion with generalized weaknessfor 2 weeks, since her last UTI. Additionally c/o suprapubic abdominal pain. Denies vomiting. Able to recall name and , but per nurse's triage, her family states that she cannot recall their names or recent events. Blood work and UA were done with blood results including a WBC of 12.1, lipase <10 L, amylase of 23 L, and CRP of 5.[address] Abd/Pel findings above. EKG is sinus rhythm with short RP, LAD and no ischemic changes. In the ED course, pt was given Rocephin and fluids. She will be D/C to home with Dx of colon diverticulum with Rx for Xifaxan and a follow up with her PCP. Allergy noted. - Diagnoses Provider Diagnoses: Colonic diverticulum Discharge - Sign-Out/Discharge Documenting (check all that apply): Discharge/Admit/Transfer - Discharge - Discharge Plan Condition: Stable Disposition: HOME Prescriptions: RiFAXimin* [Xifaxan*] 550 mg PO TID #20 tab Patient Education Materials: Diverticulosis (ED) Referrals: Alex Mack MD [Primary Care Provider] - 3 Days Additional Instructions: RETURN TO ED FOR ANY NEW OR WORSENING SYMPTOMS. The documentation as recorded by the Aylin hoffman Rebecca accurately reflects the service I personally performed and the decisions made by , Giovanna Cazares MD.
== END 2017-09-25 00:35 | disposition home or self-care (01) ==
LOC: ED 19:43
DX: K57.30 Diverticulosis of large intestine without perforation or abscess without bleeding (principal); R53.1 Weakness; R10.9 Unspecified abdominal pain; Z87.891 Personal history of nicotine dependence
CPT/HCPCS: 36415; 74177; 80053; 81003; 81015; 82150; 83605; 83690; 83735; 85025; 86140; 87040; 87086; 93005; 96365; 99283; A9270-GY; J0696; Q9967